=== PATIENT | male | born 1960 | race Caucasian/White ===

== ENCOUNTER 2017-07-18 23:33 | Observation (INO) ==
[2017-07-19 00:08] LABS: Basophils # 0.1 K/mm3 (0-0.2); Basophils % 0.8 % (0.1-2.0); Eosinophils # 0.3 K/mm3 (0.0-0.4); Hematocrit 49.1 % (42.0-52.0); Hemoglobin 16.7 g/dL (14.1-18.0); Lymphocytes # 3.7 K/mm3 (0.7-4.5); Lymphocytes % 39.4 K/mm3 (10-50); Mean Corpuscular HGB Conc 33.9 g/dL (31.8-35.4); Mean Corpuscular Hemoglobin 31.2 pg (27.0-31.2); Mean Platelet Volume 7.6 fl (7.4-10.4); Monocytes # 0.6 K/mm3 (0.1-1.0); Monocytes % 6.8 % (1.7-9.3); Neutrophils # 4.7 K/mm3 (1.8-7.8); Neutrophils % 49.9 % (37.0-80.0); Platelet Count 238 K/mm3 (142-424); Red Blood Count 5.34 M/mm3 (4.60-6.20); Red Cell Distribution Width 12.7 % (11.5-17.5); White Blood Count 9.4 K/mm3 (4.8-10.8)
--- NOTE | 2017-07-19 00:23 | Emergency Department Note ---
ED Disposition Clinical Impression: Unstable angina Chest pain Qualifiers: Chest pain type: precordial pain Qualified Code(s): R07.2 - Precordial pain Disposition: Admitted as Observation Condition on Discharge: Good - Critical Care Critical Care Time: No Attestation: On 07/18/17, the high probability of a clinically significant, sudden or life threatening deterioration of the following system(s) required my full and direct attention, intervention and personal management. The time I documented below is in addition to time spent performing reported procedures but includes the following listed in this critical care notation. Medical Decision Making - Medical Records Medical records reviewed: Yes: I reviewed the patient's medical records. - Ferdinand Inquiry Pt receiving controlled substance: No Vital Signs: 07/18/17 23:34 Temperature 97.9 F Temperature Source Oral Pulse Rate [Right Radial] 73 Respiratory Rate 16 Blood Pressure [Right Arm] 195/98 Blood Pressure Mean [Right Arm] 130 Blood Pressure Source [Right Arm] Automatic Cuff Blood Pressure Position [Right Arm] Sitting 02 Sat by Pulse Oximetry 91 L Oxygen Delivery Method Room Air - Lab Data Lab results reviewed: Yes: I reviewed the patient's lab results. Lab Results 07/18/17 23:55: WBC 9.4, RBC 5.34, Hgb 16.7, Hct 49.1, MCV 92.0, MCH 31.2, MCHC 33.9, RDW 12.7, Plt Count 238, MPV 7.6, Neut % (Auto) 49.9, Lymph % (Auto) 39.4 , Carlton % (Auto) 6.8, Eos % (Auto) 3.0, Baso % (Auto) 0.8, Neut # (Auto) 4.7, Lymph # (Auto) 3.7, Carl[place] # (Auto) 0.6, Eos # (Auto) 0.3, Baso # (Auto) 0.1 07/18/17 23:55: Sodium 144, Potassium 3.5, Chloride 107, Carbon Dioxide 26, Anion Gap 14.5, BUN 19 H, Creatinine 0.87, Estimated Creat Clear 157, Estimated GFR 90, Est GFR ( Amer) 109, Glucose 136 H, Calcium 8.6, Total Bilirubin 0.4, AST 26, ALT 59, Alkaline Phosphatase 125 H, Total Creatine Kinase 83, CK- MB (CK-2) 0.8, CK-MB (CK-2) Rel Index 1.0, Troponin I < 0.02, Total Protein 7.3 , Albumin 3.7, Globulin 3.6 H, Albumin/Globulin Ratio 1.0 L Result diagrams: 07/18/17 23:55 07/18/17 23:55 Orders (Tests/Meds): ED MEDICATIONS Generic Name Dose Route Start Last Admin Trade Name Freq PRN Reason Stop Dose Admin Nitroglycerin 0.4 mg 07/19/17 00:04 07/19/17 00:06 Nitrostat 0.4mg Sl Tablet SL 08/18/17 00:03 0.4 mg Q5MINP PRN Administration Chest Pain Discontinued Medications Generic Name Dose Route Start Last Admin Trade Name Freq PRN Reason Stop Dose Admin Aspirin 243 mg 07/18/17 23:43 07/18/17 23:46 Aspirin 81mg Chewable Tablet PO 07/18/17 23:44 243 mg ONCE ONE Administration Nitroglycerin 1 gm 07/19/17 00:21 07/19/17 00:27 Nitroglycerin 1 Inch Oint Udp TD 07/19/17 00:22 1 gm ONCE ONE Administration Ticagrelor 180 mg 07/19/17 01:25 07/19/17 01:30 Brilinta 90mg Tablet PO 07/19/17 01:26 180 mg ONCE ONE Administration ORDERS Category Date Time Status XR chest portable Stat Exams 07/18/17 23:42 Taken ECG Request by /Lucía Stat Y 07/18/17 23:41 Ordered - Radiology Data #1 Image(s): Chest Image Reviewed: Yes I reviewed the patient's radiology image Preliminary Findings: Abnormal (changes lt base ) - ECG Data Tracing #1 I reviewed this ECG and interpreted as documented below: Normal Sinus Rhythm: Yes Ischemic changes: non-specific ST-T wave changes - Physician Consults Physician Consulted: tanisha Reason -: Pt condition Chest Pain HPI - General Chief Complaint: Chest Pain Stated Complaint: chest pain Time Seen by Provider: 07/18/17 23:50 Mode of Arrival: Ambulatory Limitations: No Limitations Description of Symptoms (Recalled from ER Triage Doc. by RN): Pt. reports chest pain on and off for two weeks. Tonight he is expreincing jaw and right arm pain , with centalized chest pressure. - History of Present Illness HPI narrative: progressive chest pain with rad to jaw and upper ext over the last 2 weeks with sob complaint: chest pain indicative of cardiac Onset (ago): day(s) Duration: intermittent, now resolved Activity at onset: during exertion, light activity Pain location: substernal Severity: moderate Quality: tightness Pain radiation: RUE, LUE, jaw/teeth Relieving factors: nothing Risk Factors for CAD: Hypertension, Hypercholesterolemia, Family Hx of CAD Treatments prior to or on arrival for Cardiac Chest Pain: aspirin - CHRISTINA Score Non-Stemi Age of patient: Less than 65 yrs Number of risk factors for CAD: Presence of 3 or more Prior coronary artery stenosis(seen in coronary angiography): Less than 50% ST-Segment deviation on ECG (more than 1 min): Absent Prior aspirin intake: ASA intake in the last 7 days Severe anginal chest pain: Two or more episodes in last 24 hours Elevated cardiac markers(CK-MB or troponin): Absent Non-Stemi Risk Score: 3 - Related Data Allergies Allergy/AdvReac Type Severity Reaction Status Date / Time No Known Allergies Allergy Unverified 03/18/17 14:30 [facility] History I have reviewed the patient's past medical history: Yes - Social History Smoking Status: Former smoker Alcohol Intake: never - Psychiatric History Expresses thoughts of harming self/others: None Suicide Plan Description: No Plan ROS Obtained: Yes All systems reviewed & no additional complaints - Constitutional Constitutional: Denies fever(s) - Eyes Eyes: Denies change in vision - ENT Ears, Nose, Mouth, and Throat: Denies sore throat - Cardiovascular Cardiovascular: Reports chest pain, Reports chest pain with activity, Reports dyspnea - Respiratory Respiratory: No cough - Genitourinary Male Genitourinary: Denies hematuria - Musculoskeletal Musculoskeletal: Denies joint pain - Integumentary/Breasts Skin/Breast: Denies rash - Neurologic Neurologic: Denies seizure-like activity Physical Exam - General General appearance: alert, in no apparent distress - Head Head exam: normocephalic - Eye Eye exam: Present: PERRL, EOMI. Absent: scleral icterus - ENT ENT exam: Present: mucous membranes moist - Neck Neck exam: Present: trachea midline - Respiratory Respiratory exam: Present: normal lung sounds bilaterally. Absent: respiratory distress - Cardiovascular Cardiovascular exam: Present: regular rate, systolic murmur, +S4 - Abdominal Exam Abdominal exam: Present: soft - Extremities Exam Extremities exam: Absent: calf tenderness - Neurological Exam Neurological exam: Present: CN II-XII intact - Psychiatric Psychiatric exam: Present: normal affect - Skin Skin exam: Present: intact
[2017-07-19 01:06] LABS: Alanine Aminotransferase 59 U/L (12-78); Albumin Level 3.7 gm/dL (3.4-5.0); Alkaline Phosphatase 125 U/L (46-116); Anion Gap 14.5 mEq/L (5-15); Aspartate Amino Transferase 26 U/L (15-37); Bilirubin,Total 0.4 mg/dL (0.2-1.0); Blood Urea Nitrogen 19 mg/dL (7-18); Calcium 8.6 mg/dL (8.5-10.1); Carbon Dioxide 26 mmol/L (21.0-32.0); Chloride 107 mmol/L (98-107); Creatine Kinase 83 U/L (39-308); Globulin 3.6 gm/dl (1.3-3.2); Glucose 136 mg/dL (74-106); Potassium 3.5 mmoL/L (3.5-5.1); Sodium 144 mmol/L (136-145); Total Protein,Serum 7.3 gm/dL (6.4-8.2)
[2017-07-19 06:16] LABS: Basophils # 0.1 K/mm3 (0-0.2); Eosinophils # 0.3 K/mm3 (0.0-0.4); Eosinophils % 3.4 % (0.1-12.0); Hematocrit 51.2 % (42.0-52.0); Hemoglobin 17.6 g/dL (14.1-18.0); Lymphocytes # 4.4 K/mm3 (0.7-4.5); Lymphocytes % 43.3 K/mm3 (10-50); Mean Corpuscular HGB Conc 34.4 g/dL (31.8-35.4); Mean Corpuscular Hemoglobin 31.6 pg (27.0-31.2); Mean Corpuscular Volume 91.7 fl (80-94); Mean Platelet Volume 7.6 fl (7.4-10.4); Monocytes # 0.6 K/mm3 (0.1-1.0); Monocytes % 5.7 % (1.7-9.3); Neutrophils # 4.7 K/mm3 (1.8-7.8); Neutrophils % 46.7 % (37.0-80.0); Platelet Count 262 K/mm3 (142-424); Red Blood Count 5.59 M/mm3 (4.60-6.20); Red Cell Distribution Width 12.7 % (11.5-17.5); White Blood Count 10.2 K/mm3 (4.8-10.8)
[2017-07-19 06:54] LABS: Chol/HDL Ratio 4.1 (1-3.5)
--- NOTE | 2017-07-19 08:38 | History & Physical Report ---
*Admission Date: 07/18/17 *Chief complaint: Unstable angina *History of present illness: 57-year-old white male with diabetes, hypercholesterolemia and hypertension and obesity with significant family history of coronary disease who came to the emergency department with a chief complaint of exertional dyspnea, exertional angina that has accelerated over the past 48 hours. Initial enzymes were negative but given his significant risk factors he was admitted to hospital for further evaluation and cardiology consultation. [facility] History Medical History: Reports:: Heart Murmur, Hyperlipidemia, Hypertension Denies:: Cancer, Diabetes Mellitus Type 1, Diabetes Mellitus Type 2, MRSA Other Medical History: Reports: Arthritis, Sinus Problems Other Surgeries: Yes: Other (lithotripsy /c 2 basket extractions) Amputation: No Fractures: Yes (Bilat ribs, 3 vertebral fractures, sternum fracture) - *Social History Educational Level: Attended High School Smoking Status: Former smoker Smoking End Date: 2013 Alcohol Intake: former Occupational Status: employed Housing: house Household Members: spouse, children - Psychiatric History Expresses thoughts of harming self/others: None Suicide Plan Description: No Plan *Family Hx:: Cancer, Coronary Artery Disease, Diabetes, Heart Attack, Hyperlipidemia, Hypertension, Kidney Disease, Stroke, Thyroid Disorder Review of Systems - Review of Systems Review of systems:: unable to obtain, other, pertinent systems reviewed and negative unless documented below - *Neurologic Denies seizure-like activity Meds Home Medications Medication Instructions Recorded Confirmed Type Albuterol Sulfate [Proair Hfa 2 puffs IH Q4HP PRN 07/19/17 07/19/17 History 90mcg/puff Inh] Aspirin [Low Dose Aspirin EC] 81 mg PO DAILY 07/19/17 07/19/17 History Atorvastatin Calcium [Atorvastatin 80 mg PO HS 07/19/17 07/19/17 History 80mg Tab] Cariprazine HCl [Vraylar] 6 mg PO DAILY 07/19/17 07/19/17 History Esomeprazole Magnesium [Nexium] 40 mg PO HS 07/19/17 07/19/17 History Ibuprofen [Ibu] 800 mg PO Q8H 07/19/17 07/19/17 History Tamsulosin HCl [Flomax 0.4mg 0.4 mg PO DAILY 07/19/17 07/19/17 History capsule] Tiotropium Br/Olodaterol HCl 1 puff INHALATION Q12H 07/19/17 07/19/17 History [Stiolto Respimat Inhal [place]] Allergies Allergy/AdvReac Type Severity Reaction Status Date / Time No Known Allergies Allergy Verified 07/19/17 02:37 Exam Vital signs and Labs for Last 24 Hours: Temp Pulse Resp BP Pulse Ox 98.5 F 63 18 163/99 96 07/19/17 04:00 07/19/17 04:00 07/19/17 04:00 07/19/17 06:54 07/19/17 04:00 Laboratory Results - last 24 hr 07/19/17 02:30: Troponin I < 0.02 07/19/17 05:35: WBC 10.2, RBC 5.59, Hgb 17.6, Hct 51.2, MCV 91.7, MCH 31.6 H, MCHC 34.4, RDW 12.7, Plt Count 262, MPV 7.6, Neut % (Auto) 46.7, Lymph % (Auto) 43.3, [place] % (Auto) 5.7, Eos % (Auto) 3.4, Baso % (Auto) 1.0, Neut # (Auto) 4.7 , Lymph # (Auto) 4.4, Dent # (Auto) 0.6, Eos # (Auto) 0.3, Baso # (Auto) 0.1 07/19/17 05:35: Sodium 144, Potassium 4.0, Chloride 107, Carbon Dioxide 27, Anion Gap 14.0, BUN 17, Creatinine 0.79, Estimated Creat Clear 177, Estimated GFR 101, Est GFR ( Amer) 122, Glucose 95 D, Magnesium 1.8, Troponin I 0.02, Triglycerides 118, Cholesterol 154, LDL Cholesterol 92, VLDL Cholesterol 24, HDL Cholesterol 38, Cholesterol/HDL Ratio 4.1 H Narrative: Patient is alert, pain-free currently, lungs are clear, heart rate regular, pulse rate in the low 60s and a sinus bradycardia rhythm abdomen soft nontender , he has no edema or pulse deficits in his feet. Neurologic exam intact. H&P: Result - Labs Labs: Short CBC 07/19/17 Range/Units 05:35 WBC 10.2 (4.8-10.8) K/mm3 Hgb 17.6 (14.1-18.0) g/dL Hct 51.2 (42.0-52.0) % Plt Count 262 (142-424) K/mm3 BMP 07/19/17 05:35 Sodium 144 Potassium 4.0 Chloride 107 Carbon Dioxide 27 BUN 17 Creatinine 0.79 Glucose 95 D Cardiac Enzymes 07/19/17 07/19/17 Range/Units 02:30 05:35 Troponin I < 0.02 0.02 (0.00-0.06) ng/ml Assessment and Plan (1) Chest pain Current visit: Yes Status: Acute Qualifiers: Chest pain type: precordial pain Qualified Code(s): R07.2 - Precordial pain Category: Medical Code(s): R07.9 - Chest pain, unspecified (2) Unstable angina Current visit: Yes Status: Acute Category: Medical Code(s): I20.0 - Unstable angina Enzymes negative. Cardiology evaluation. Patient warrants left heart catheterization given his significant risk factors and clinical presentation.
--- NOTE | 2017-07-19 15:16 | Pharmacy Consult Notes ---
[facility] Pharmacy VTE Monitoring - Patient Demographics Admission date: 07/19/17 Report Date: 07/19/17 Time: 15:16 Allergies/Adverse Reactions: Patient Allergies No Known Allergies Allergy (Verified 07/19/17 02:37) Height: 1.83 m Weight: 122.583 kg Patient Problems: Current Active Problems Chest pain (Acute) Unstable angina (Acute) - VTE Risk Labs: VTE Related Lab Results Hgb 17.6 g/dL (14.1-18.0) 07/19/17 05:35 Hct 51.2 % (42.0-52.0) 07/19/17 05:35 Plt Count 262 K/mm3 (142-424) 07/19/17 05:35 BUN 17 mg/dL (7-18) 07/19/17 05:35 Creatinine 0.79 mg/dL (0.70-1.30) 07/19/17 05:35 Estimated Creat Clear 177 mL/min (0-300) 07/19/17 05:35 Was VTE Risk Assessment Performed: Yes VTE Score: 3 VTE Risk Level: Low Risk - Prophylaxis VTE Prophylaxis Ordered?: Yes Types of VTE Prophylaxis: TEDS Knee High Location of Applied Device: Bilateral Lower Extremeties
[2017-07-20 06:32] LABS: Basophils % 0.3 % (0.1-2.0); Eosinophils # 0.1 K/mm3 (0.0-0.4); Eosinophils % 0.6 % (0.1-12.0); Hematocrit 45.3 % (42.0-52.0); Hemoglobin 15.7 g/dL (14.1-18.0); Lymphocytes # 2.6 K/mm3 (0.7-4.5); Lymphocytes % 20.2 K/mm3 (10-50); Mean Corpuscular HGB Conc 34.7 g/dL (31.8-35.4); Mean Corpuscular Hemoglobin 31.9 pg (27.0-31.2); Mean Corpuscular Volume 91.9 fl (80-94); Mean Platelet Volume 7.9 fl (7.4-10.4); Monocytes # 0.8 K/mm3 (0.1-1.0); Monocytes % 6.6 % (1.7-9.3); Neutrophils # 9.3 K/mm3 (1.8-7.8); Neutrophils % 72.3 % (37.0-80.0); Platelet Count 232 K/mm3 (142-424); Red Blood Count 4.93 M/mm3 (4.60-6.20); Red Cell Distribution Width 13.1 % (11.5-17.5); White Blood Count 12.8 K/mm3 (4.8-10.8)
--- NOTE | 2017-07-20 09:00 | Progress Note ---
Internal Medicine - PN: Subj *Date: 07/20/17 *Time: 08:59 Interval history: Patient has done well overnight with no further chest pain, but has continued to be on nitro drip for his blood pressure which is been in the 150/170 systolic range. Exam Vital signs and Labs for Last 24 Hours: Temp Pulse Resp BP Pulse Ox 98.3 F 67 14 164/83 92 L 07/20/17 04:00 07/20/17 07:00 07/20/17 07:00 07/20/17 07:00 07/20/17 07:00 Laboratory Results - last 24 hr 07/19/17 12:14: Activated Clotting Time 400 H* 07/19/17 12:43: Activated Clotting Time 305 H* D 07/20/17 06:00: Sodium 139, Potassium 4.0, Chloride 105, Carbon Dioxide 23, Anion Gap 15.0, BUN 18, Creatinine 0.73, Estimated Creat Clear 192, Estimated GFR 110, Est GFR ( Amer) 134, Glucose 104 07/20/17 06:00: WBC 12.8 H D, RBC 4.93, Hgb 15.7, Hct 45.3, MCV 91.9, MCH 31.9 H , MCHC 34.7, RDW 13.1, Plt Count 232, MPV 7.9, Neut % (Auto) 72.3, Lymph % (Auto ) 20.2, Preston % (Auto) 6.6, Eos % (Auto) 0.6, Baso % (Auto) 0.3, Neut # (Auto) 9.3 H, Lymph # (Auto) 2.6, Preston # (Auto) 0.8, Eos # (Auto) 0.1, Baso # (Auto) 0.0 I & O for Last 24 hours: Intake & Output 07/17/17 07/18/17 07/19/17 07/20/17 11:59 11:59 11:59 11:59 Intake Total 966 / 966 Output Total 650 / 650 Balance 316 / 316 Weight 272 lb Narrative: Patient is pleasant, alert, oriented 3, heart rate regular, lungs clear. Abdomen soft. Assessment and Plan (1) Chest pain Current visit: Yes Status: Acute Qualifiers: Chest pain type: precordial pain Qualified Code(s): R07.2 - Precordial pain Category: Medical Code(s): R07.9 - Chest pain, unspecified (2) Unstable angina Current visit: Yes Status: Acute Category: Medical Code(s): I20.0 - Unstable angina (3) Accelerated hypertension Current visit: Yes Status: Acute Category: Medical Code(s): I10 - Essential (primary) hypertension - Assessment and plan all Dx Assessment and Plan for all problems:: Cardiology note/procedure note reviewed. Appreciated. Continue postcardiac/stent placement medications. Bump up beta-paty and add JULIANE inhibitor today for hypertensive issues. Wean off nitroglycerin drip today.
--- NOTE | 2017-07-21 08:06 | Discharge Summary ---
General - General Admission date: 07/19/17 Discharge date: 07/21/17 HPI HPI: 57-year-old white male with diabetes, hypercholesterolemia and hypertension and obesity with significant family history of coronary disease who came to the emergency department with a chief complaint of exertional dyspnea, exertional angina that has accelerated over the past 48 hours. Initial enzymes were negative but given his significant risk factors he was admitted to hospital for further evaluation and cardiology consultation. Hospital Course Hospital Course: Patient was admitted, rule out for GA but given his significant risk factors and exertional angina symptoms he was taken for left heart cath on 07/19/17, and significant disease was found in the LAD and the RCA. This was stented with good results but patient had a fairly significant hypertensive response and was medicated with nitro drip and placed in the ICU. Blood pressure responded to this. The patient had no further chest pain and felt much better. Over the next 48 hours the patient's nitro drip was weaned off and he was successfully treated with tapering doses of beta blockade and JULIANE inhibitors. Through the night last night he felt much better, blood pressure was relatively well controlled without nitro drip. Headache that had been with the drip has improved. This morning he feels well, he will be discharged home with standard post stent placement medications, aggressive blood pressure control, aggressive statin therapy and close follow-up. Objective Vital signs: Temp Pulse Resp BP Pulse Ox 97.9 F 64 13 144/84 94 L 07/21/17 04:00 07/21/17 06:13 07/21/17 06:13 07/21/17 06:13 07/21/17 06:13 Narrative: Patient is pleasant, alert, oriented 3, lungs are clear, heart rate regular. Abdomen soft, no edema or clubbing. Cranial nerves are intact. DS: Diagnosis - Discharge Diagnosis (1) Chest pain Status: Acute (2) Unstable angina Status: Acute (3) Accelerated hypertension Status: Acute Discharge Plan - Patient Discharge Instructions ACTIVITY: No heavy lifting DIET: continue same diet - Follow up Plan Follow up with: Kareem Duenas MD [Family Provider] - 07/25/17 Esteban Grimes MD [Staff Physician] - 07/28/17 Disposition: Home, Self-Alf Medications: Home Medications Medication Instructions Recorded Confirmed Type Albuterol Sulfate [Proair Hfa 2 puffs IH Q4HP PRN 07/19/17 07/19/17 History 90mcg/puff Inh] Aspirin [Low Dose Aspirin EC] 81 mg PO DAILY 07/19/17 07/19/17 History Atorvastatin Calcium [Atorvastatin 80 mg PO HS 07/19/17 07/19/17 History 80mg Tab] Esomeprazole Magnesium [Nexium] 40 mg PO HS 07/19/17 07/19/17 History Ibuprofen [Ibu] 800 mg PO Q8H 07/19/17 07/19/17 History Tamsulosin HCl [Flomax 0.4mg 0.4 mg PO DAILY 07/19/17 07/19/17 History capsule] Tiotropium Br/Olodaterol HCl 1 puff INHALATION Q12H 07/19/17 07/19/17 History [Stiolto Respimat Inhal [place]] Cariprazine HCl [Vraylar] 1.5 mg PO DAILY 07/20/17 07/20/17 History Prescriptions/Medication Reconciliation: New Lisinopril [Lisinopril 20mg Tab] 20 mg PO BID #60 tab Ticagrelor [Brilinta 90mg Tablet] 90 mg PO BID #60 tab Carvedilol [Carvedilol 25mg Tab] 25 mg PO BID #60 tab Continue Tiotropium Br/Olodaterol HCl [Stiolto Respimat Inhal [place]] 1 puff INHALATION Q12H Atorvastatin Calcium [Atorvastatin 80mg Tab] 80 mg PO HS Albuterol Sulfate [Proair Hfa 90mcg/puff Inh] 2 puffs IH Q4HP PRN PRN Reason: Shortness Of Breath Aspirin [Low Dose Aspirin EC] 81 mg PO DAILY Cariprazine HCl [Vraylar] 1.5 mg PO DAILY Esomeprazole Magnesium [Nexium] 40 mg PO HS Tamsulosin HCl [Flomax 0.4mg capsule] 0.4 mg PO DAILY Discontinued Ibuprofen [Ibu] 800 mg PO Q8H
--- NOTE | 2017-07-21 09:44 | Consult Report ---
History of Present Illness Consult date: 07/21/17 Requesting physician: Kareem Duenas Consult reason: chest pain Chief complaint: chest pain Additional Medical History:: 1. COPD A. History of tobacco use 2-2.5 packs per day 35 years. Discontinued approximately 2013. 2. Hypertension 3. Hyperlipidemia 4. Coronary artery disease A. Left heart catheterization, 07/20/2017 ANGIOGRAPHIC RESULTS: 1. The left main artery normal 2. The left anterior descending artery has proximal hazy 70% stenosis followed by a long concentric 80% stenosis followed by an additional 50% stenosis. The LAD is a large vessel that wraps the apex. The first diagonal artery is a large vessel and has an ostial 90% stenosis 3. The circumflex artery is a nondominant vessel giving rise to a large obtuse marginal artery which has a proximal eccentric 40-50% stenosis 4. The right coronary artery is a very large caliber dominant vessel which has a proximal complex greater than 90% stenosis followed by long 50-60% stenosis 5. The PRAKASH ventriculogram reveals normal 65% 6. The left ventricular end-diastolic pressure 20 mmHg IMPRESSION: 1. Critical 2 vessel coronary artery disease as described above 2. Successful stenting of the proximal to mid LAD critical disease reduced to 0% with 2 drug-eluting stents with one additional bifurcating stent into a large proximal diagonal artery 3. Successful stenting of the proximal to mid dominant right coronary artery critical disease reduced to 0% with 1 drug-eluting stent 4. Persistent mild to moderate disease in the circumflex artery 5. Normal ejection fraction 6. Mildly elevated LVEDP PLAN: 1. Brilinta and aspirin 2. LDL less than 55 3. Avoidance of tobacco products 4. Aggressive risk factor modification 5. Cardiac rehabilitation History of present illness: 57-year-old white male admitted over the weekend for recurrent episodes of exertion related discomfort in the jaw and right arm. Symptoms would resolve after a few minutes of rest but would recur with resumption of activity. Says been ongoing over the last 2-3 weeks with progression in symptoms in intensity. Patient was admitted for unstable angina/acute coronary syndrome. His troponins remained normal but patient was taken to the cardiac Pharmacy Scheduler with significant three-vessel disease noted. He did receive subsequent stenting in the LAD, diagonal and RCA arteries. This a.m. the patient is feeling well with no further episodes of chest pain. He is preparing to be discharged home. [facility] History Medical History: Reports:: Heart Murmur, Hyperlipidemia, Hypertension Denies:: Cancer, Diabetes Mellitus Type 1, Diabetes Mellitus Type 2, MRSA Other Medical History: Reports: Arthritis, Sinus Problems Other Surgeries: Yes: Other (lithotripsy /c 2 basket extractions) Amputation: No Fractures: Yes (Bilat ribs, 3 vertebral fractures, sternum fracture) - *Social History Educational Level: Attended High School Smoking Status: Former smoker Smoking End Date: 2013 Alcohol Intake: former Occupational Status: employed Housing: house Household Members: spouse, children - Psychiatric History Expresses thoughts of harming self/others: None Suicide Plan Description: No Plan *Family Hx:: Cancer, Coronary Artery Disease, Diabetes, Heart Attack, Hyperlipidemia, Hypertension, Kidney Disease, Stroke, Thyroid Disorder Meds Home Medications Medication Instructions Recorded Confirmed Type Albuterol Sulfate [Proair Hfa 2 puffs IH Q4HP PRN 07/19/17 07/19/17 History 90mcg/puff Inh] Aspirin [Low Dose Aspirin EC] 81 mg PO DAILY 07/19/17 07/19/17 History Atorvastatin Calcium [Atorvastatin 80 mg PO HS 07/19/17 07/19/17 History 80mg Tab] Esomeprazole Magnesium [Nexium] 40 mg PO HS 07/19/17 07/19/17 History Tamsulosin HCl [Flomax 0.4mg 0.4 mg PO DAILY 07/19/17 07/19/17 History capsule] Tiotropium Br/Olodaterol HCl 1 puff INHALATION Q12H 07/19/17 07/19/17 History [Stiolto Respimat Inhal [place]] Cariprazine HCl [Vraylar] 1.5 mg PO DAILY 07/20/17 07/20/17 History Allergies Allergy/AdvReac Type Severity Reaction Status Date / Time No Known Allergies Allergy Verified 07/19/17 02:37 Review of Systems - *Cardiovascular Reports chest pain - *Respiratory Reports shortness of breath - *Gastrointestinal Denies change in stools - *Neurologic Denies seizure-like activity Exam Vital signs and Labs for Last 24 Hours: Temp Pulse Resp BP Pulse Ox 97.9 F 76 18 155/76 92 L 07/21/17 04:00 07/21/17 08:31 07/21/17 08:31 07/21/17 08:31 07/21/17 08:31 I & O for Last 24 hours: Intake & Output 07/18/17 07/19/17 07/20/17 07/21/17 11:59 11:59 11:59 11:59 Intake Total 966 / 966 400 / 400 Output Total 650 / 650 775 / 775 Balance 316 / 316 -375 / -375 Weight 270 lb 4 oz 272 lb - *Routine Neck Exam Absent: carotid bruit - *Routine Respiratory Exam Present: CTA bilaterally - *Routine Cardiovascular Exam Present: RRR - *Routine Extremities Exam Absent: edema Assessment and Plan (1) Chest pain Current visit: Yes Status: Acute Qualifiers: Chest pain type: precordial pain Qualified Code(s): R07.2 - Precordial pain Category: Medical Code(s): R07.9 - Chest pain, unspecified (2) Unstable angina Current visit: Yes Status: Acute Category: Medical Code(s): I20.0 - Unstable angina (3) Accelerated hypertension Current visit: Yes Status: Acute Category: Medical Code(s): I10 - Essential (primary) hypertension (4) Hyperlipidemia Current visit: Yes Status: Acute Category: Medical Code(s): E78.5 - Hyperlipidemia, unspecified - Assessment and plan all Dx Assessment and Plan for all problems:: Agree with discharge home. Continue dual antiplatelet therapy (aspirin and Brilinta) along with antihypertensive and antihyperlipidemic medications. He will follow-up with us in 1 week.
== END 2017-07-21 10:39 | disposition home or self-care (01) ==
LOC: ER 23:33 → 2ND 23:33 → ICU 07-19 13:57
PROVIDERS: ADMIT Emergency Medicine; ATTEND Internal Medicine Adolescent Medicine

== ENCOUNTER 2017-07-31 13:52 | Outpatient (RCR) | payer MEDICAID, SELFPAY | END 2017-07-31 13:53 | disposition home or self-care (01) | LOC: PT 13:52 | PROVIDERS: Visit Provider Internal Medicine | DX: Z95.5 Presence of coronary angioplasty implant and graft (principal) | CPT/HCPCS: 93798 ==

== ENCOUNTER → 2017-08-13 11:11 | Outpatient (CLI) | payer MEDICAID, SELFPAY ==
[2017-08-13 11:29] LABS: Basophils # 0.1 K/mm3 (0-0.2); Basophils % 1.1 % (0.1-2.0); Eosinophils # 0.2 K/mm3 (0.0-0.4); Hematocrit 46.7 % (42.0-52.0); Lymphocytes # 2.2 K/mm3 (0.7-4.5); Lymphocytes % 30.7 K/mm3 (10-50); Mean Corpuscular HGB Conc 34.2 g/dL (31.8-35.4); Mean Corpuscular Hemoglobin 30.9 pg (27.0-31.2); Mean Corpuscular Volume 90.3 fl (80-94); Monocytes # 0.5 K/mm3 (0.1-1.0); Monocytes % 7.3 % (1.7-9.3); Neutrophils # 4.2 K/mm3 (1.8-7.8); Neutrophils % 57.9 % (37.0-80.0); Platelet Count 305 K/mm3 (142-424); Red Blood Count 5.17 M/mm3 (4.60-6.20); Red Cell Distribution Width 12.4 % (11.5-17.5); White Blood Count 7.3 K/mm3 (4.8-10.8)
[2017-08-13 13:13] LABS: Alanine Aminotransferase 84 U/L (12-78); Albumin Level 3.8 gm/dL (3.4-5.0); Albumin/Globulin Ratio 1.1 (1.1-1.8); Alkaline Phosphatase 162 U/L (46-116); Anion Gap 14.7 mEq/L (5-15); Aspartate Amino Transferase 31 U/L (15-37); Bilirubin,Total 1.1 mg/dL (0.2-1.0); Blood Urea Nitrogen 19 mg/dL (7-18); Calcium 9.7 mg/dL (8.5-10.1); Carbon Dioxide 27 mmol/L (21.0-32.0); Chloride 106 mmol/L (98-107); Cholesterol 128 mg/dL (140-200); Creatinine,Serum 0.98 mg/dL (0.70-1.30); Estimated Glomerular Filt Rate 79 ml/min (>60); GFR (African American) 95 ML/MIN (>60); Globulin 3.6 gm/dl (1.3-3.2); Glucose 95 mg/dL (74-106); HDL Cholesterol 32 mg/dL (27-67); LDL Cholesterol 81 mg/dL (0-130); Potassium 4.7 mmoL/L (3.5-5.1); Sodium 143 mmol/L (136-145); Total Protein,Serum 7.4 gm/dL (6.4-8.2); Triglycerides 74 mg/dL (30-200); VLDL Cholesterol 15 mg/dL (0-40)
== END ==
PROVIDERS: Visit Provider Internal Medicine Adolescent Medicine
DX: E78.5 Hyperlipidemia, unspecified (principal); I25.10 Atherosclerotic heart disease of native coronary artery without angina pectoris
CPT/HCPCS: 36415; 80053; 80061; 85025

== ENCOUNTER 2017-09-28 12:07 | Observation (INO) ==
--- NOTE | 2017-09-28 12:16 | Emergency Department Note ---
ED Disposition Clinical Impression: Acute renal failure Qualifiers: Acute renal failure type: unspecified Qualified Code(s): N17.9 - Acute kidney failure, unspecified Hypotension Qualifiers: Hypotension type: unspecified hypotension type Qualified Code(s): I95.9 - Hypotension, unspecified Disposition: Still a Patient Condition on Discharge: Fair - Critical Care Critical Care Time: Yes Attestation: On 09/28/17, the high probability of a clinically significant, sudden or life threatening deterioration of the following system(s) required my full and direct attention, intervention and personal management. The time I documented below is in addition to time spent performing reported procedures but includes the following listed in this critical care notation. Total Critical Care Time: 20 Vital system(s) involved:: Renal Failure My critical care processes included: Assessment & monitoring of V/S, Initial and Re-exams, Data Review/Interpretation, Coordinating Care, Medication Orders and management, Documentation Medical Decision Making - Ferdinand Inquiry Pt receiving controlled substance: No Vital Signs: 09/28/17 12:10 09/28/17 13:38 Temperature 97.9 F 98.3 F Temperature Source Oral Oral Pulse Rate [Right Brachial] 61 62 Respiratory Rate 20 20 Blood Pressure [Right Arm] 83/43 109/73 Blood Pressure Mean [Right Arm] 56 85 Blood Pressure Source [Right Arm] Automatic Cuff Automatic Cuff Blood Pressure Position [Right Arm] Sitting Supine 02 Sat by Pulse Oximetry 92 L 95 Oxygen Delivery Method Room Air Room Air - Lab Data Lab Results 09/28/17 12:18: WBC 13.0 H, RBC 4.81, Hgb 16.1, Hct 43.8, MCV 91.0, MCH 33.5 H, MCHC 36.8 H, RDW 13.8, Plt Count 280, MPV 8.0, Neut % (Auto) 65.2, Lymph % (Auto ) 23.7, Bracken % (Auto) 8.9, Eos % (Auto) 1.4, Baso % (Auto) 0.7, Neut # (Auto) 8.5 H, Lymph # (Auto) 3.1, Bracken # (Auto) 1.2 H, Eos # (Auto) 0.2, Baso # (Auto) 0.1 09/28/17 12:18: Sodium 140, Potassium 3.6, Chloride 104, Carbon Dioxide 22, Anion Gap 17.6 H, BUN 33 H, Creatinine 4.22 H, Estimated Creat Clear 32, Estimated GFR 15 L*, Est GFR ( Amer) 18 L*, Glucose 102, Calcium 9.1, Total Bilirubin 1.3 H, AST 22, ALT 54, Alkaline Phosphatase 159 H, Total Creatine Kinase 88, CK-MB (CK-2) 0.9, CK-MB (CK-2) Rel Index 1.0, Troponin I < 0.02, Total Protein 8.2, Albumin 4.4, Globulin 3.8 H, Albumin/Globulin Ratio 1.2 Result diagrams: 09/28/17 12:18 09/28/17 12:18 Orders (Tests/Meds): ED MEDICATIONS Generic Name Dose Route Start Last Admin Trade Name Freq PRN Reason Stop Dose Admin Sodium Chloride 1,000 mls @ 999 mls/hr 09/28/17 13:15 09/28/17 13:34 Sod Chlor 0.9% 1000ml Bag IV 09/28/17 14:15 999 mls/hr .Q1H1M ESME Administration Discontinued Medications Generic Name Dose Route Start Last Admin Trade Name Freq PRN Reason Stop Dose Admin Sodium Chloride 1,000 mls @ 999 mls/hr 09/28/17 12:30 09/28/17 13:34 Sod Chlor 0.9% 1000ml Bag IV 09/28/17 13:30 999 mls/hr .Q1H1M ESME Administration ORDERS Category Date Time Status Chest XR 2 view (NOT portable) [XR chest 2V] Stat Exams 09/28/17 12:23 Taken - ECG Data Tracing #1 EKG interpreted by Carlos Manuel Paz MD: Rhythm: sinus Rate: 62 [place]: normal Ectopy: none Conduction: normal ST Segment Changes: none T Wave Changes: none Q Waves: none No evidence of acute ischemia or injury - Physician Consults Physician Consulted: Dilia Duenas Time: 13:25 Reason -: Admission Comment/Response: Agrees to admit the patient to the hospital. We discussed the patient's clinical information, including history, exam, laboratory and radiology results and ED course. Per hospital procedure, I will write temporary bridge inpatient orders on the patient. Specific orders requested by the admitting physician: Stop lisinopril, continue hydration, recheck labs in the morning General Adult HPI - General Stated complaint: Weakness and Low BP Time Seen by Provider: 09/28/17 12:15 - History of Present Illness HPI narrative: States he is feeling generally weak and blood pressure was down in the 60s today. When he was out in the heat working he had trouble holding his head up. He says ever since he had stents placed in June he has had chest tightness whenever he is out of the heat. Also gets nauseated when out in the heat. Family states he is not drinking fluids like he should considering his heat exposure. He had chest tightness today when out in the heat along with feeling weak and had trouble holding his head up. Currently has no chest tightness. When he had his stents placed in June his blood pressure was very high. However, since then he has had problems with his blood pressure being too low, in the 80s systolic, and his medications have been adjusted downwards. Currently he is on bisoprolol and lisinopril. He has not taken any of his blood pressure medications this morning. - Related Data Home Medications Medication Instructions Recorded Confirmed Albuterol Sulfate [Proair Hfa 2 puffs IH Q4HP PRN 07/19/17 09/28/17 90mcg/puff Inh] Aspirin [Low Dose Aspirin EC] 81 mg PO DAILY 07/19/17 09/28/17 Atorvastatin Calcium [Atorvastatin 80 mg PO HS 07/19/17 09/28/17 80mg Tab] Esomeprazole Magnesium [Nexium] 40 mg PO HS 07/19/17 09/28/17 Tamsulosin HCl [Flomax 0.4mg 0.4 mg PO DAILY 07/19/17 09/28/17 capsule] Cariprazine HCl [Vraylar] 1.5 mg PO DAILY 07/20/17 09/28/17 lisinopril 20 mg tablet 10 mg PO BID tab 09/16/17 09/28/17 Bisoprolol Fumarate [Zebeta 5mg 5 mg PO DAILY 09/28/17 09/28/17 tablet] Clopidogrel Bisulfate [Plavix 75mg 75 mg PO DAILY 09/28/17 09/28/17 Tab] Allergies Allergy/AdvReac Type Severity Reaction Status Date / Time No Known Allergies Allergy Verified 07/29/17 12:29 [facility] History I have reviewed the patient's past medical history: Yes Medical History: Reports:: Heart Murmur, Hyperlipidemia, Hypertension Denies:: Cancer, Diabetes Mellitus Type 1, Diabetes Mellitus Type 2, MRSA Other Medical History: Reports: Arthritis, Sinus Problems Other Surgeries: Yes: Cardiac Catheterization (07/19/17 4 stents), Other Amputation: No Fractures: Yes (Bilat ribs, 3 vertebral fractures, sternum fracture) - Social History Smoking Status: Former smoker Alcohol Intake: former Alcohol Intake Frequency:: other Occupational Status: employed Housing: house Household Members: spouse, children Family Hx:: Cancer, Coronary Artery Disease, Diabetes, Heart Attack, Hyperlipidemia, Hypertension, Kidney Disease, Stroke, Thyroid Disorder ROS Obtained: Yes All systems reviewed & no additional complaints - Constitutional Constitutional: Reports fatigue, Denies fever(s), Reports weakness - Cardiovascular Cardiovascular: Reports as per HPI, Reports chest pain - Respiratory Respiratory: Yes dyspnea - Gastrointestinal Gastrointestingal: Reports: nausea Physical Exam - General General appearance: alert, in no apparent distress - Head Head exam: atraumatic, normocephalic, normal inspection - Eye Eye exam: Present: normal appearance, PERRL, EOMI - ENT ENT exam: Present: normal exam, normal oropharynx, mucous membranes moist, TM's normal bilaterally, normal external ear exam - Neck Neck exam: Present: normal inspection, full ROM, trachea midline. Absent: meningismus, lymphadenopathy - Chest Chest inspection: Present: normal inspection, symmetric chest wall rise. Absent : tenderness - Respiratory Respiratory exam: Present: normal lung sounds bilaterally. Absent: respiratory distress - Cardiovascular Cardiovascular exam: Present: regular rate, normal rhythm. Absent: JVD - Abdominal Exam Abdominal exam: Present: soft, normal bowel sounds. Absent: distention, tenderness, guarding - Extremities Exam Extremities exam: Present: normal inspection, full ROM, normal capillary refill. Absent: calf tenderness - Neurological Exam Neurological exam: Present: alert, oriented X3 - Psychiatric Psychiatric exam: Present: normal affect, normal mood - Skin Skin exam: Present: warm, dry, intact, normal color
[2017-09-28 12:41] LABS: Basophils # 0.1 K/mm3 (0-0.2); Basophils % 0.7 % (0.1-2.0); Eosinophils # 0.2 K/mm3 (0.0-0.4); Eosinophils % 1.4 % (0.1-12.0); Hematocrit 43.8 % (42.0-52.0); Hemoglobin 16.1 g/dL (14.1-18.0); Lymphocytes # 3.1 K/mm3 (0.7-4.5); Lymphocytes % 23.7 K/mm3 (10-50); Mean Corpuscular HGB Conc 36.8 g/dL (31.8-35.4); Mean Corpuscular Hemoglobin 33.5 pg (27.0-31.2); Monocytes # 1.2 K/mm3 (0.1-1.0); Monocytes % 8.9 % (1.7-9.3); Neutrophils # 8.5 K/mm3 (1.8-7.8); Neutrophils % 65.2 % (37.0-80.0); Platelet Count 280 K/mm3 (142-424); Red Blood Count 4.81 M/mm3 (4.60-6.20); Red Cell Distribution Width 13.8 % (11.5-17.5)
[2017-09-28 13:03] LABS: Alanine Aminotransferase 54 U/L (12-78); Albumin Level 4.4 gm/dL (3.4-5.0); Albumin/Globulin Ratio 1.2 (1.1-1.8); Alkaline Phosphatase 159 U/L (46-116); Anion Gap 17.6 mEq/L (5-15); Aspartate Amino Transferase 22 U/L (15-37); Bilirubin,Total 1.3 mg/dL (0.2-1.0); Blood Urea Nitrogen 33 mg/dL (7-18); Calcium 9.1 mg/dL (8.5-10.1); Carbon Dioxide 22 mmol/L (21.0-32.0); Chloride 104 mmol/L (98-107); Creatine Kinase 88 U/L (39-308); Globulin 3.8 gm/dl (1.3-3.2); Glucose 102 mg/dL (74-106); Potassium 3.6 mmoL/L (3.5-5.1); Sodium 140 mmol/L (136-145); Total Protein,Serum 8.2 gm/dL (6.4-8.2)
--- NOTE | 2017-09-28 14:27 | Pharmacy Consult Notes ---
[facility] Pharmacy VTE Monitoring - Patient Demographics Admission date: 09/28/17 Report Date: 09/28/17 Time: 14:27 Allergies/Adverse Reactions: Patient Allergies No Known Allergies Allergy (Verified 07/29/17 12:29) Height: 1.83 m Weight: 109.769 kg Patient Problems: Current Active Problems Acute renal failure (Acute) Hypotension (Acute) - VTE Risk Labs: VTE Related Lab Results Hgb 16.1 g/dL (14.1-18.0) 09/28/17 12:18 Hct 43.8 % (42.0-52.0) 09/28/17 12:18 Plt Count 280 K/mm3 (142-424) 09/28/17 12:18 BUN 33 mg/dL (7-18) H 09/28/17 12:18 Creatinine 4.22 mg/dL (0.70-1.30) H 09/28/17 12:18 Estimated Creat Clear 32 mL/min (0-300) 09/28/17 12:18 - Prophylaxis VTE Prophylaxis Ordered?: Yes Types of VTE Prophylaxis: TEDS Knee High Location of Applied Device: Bilateral Lower Extremeties
[2017-09-29 06:15] LABS: Anion Gap 10.7 mEq/L (5-15); Potassium 3.7 mmoL/L (3.5-5.1)
[2017-09-29 06:46] LABS: Calcium 7.7 mg/dL (8.5-10.1)
--- NOTE | 2017-09-29 07:52 | H&P/Discharge Summary ---
General - General Admission date:: 09/28/17 Discharge date: 09/29/17 *Admission Date: 09/28/17 *Chief complaint: Weakness and fatigue *History of present illness: 57-year-old white male with recent stent placement, hypertension and lipidemia who presented to the emergency department after working out in the heat and becoming very weak and dizzy with blood pressures in the 60s. Found to have acute kidney injury, dehydration, creatinine 4.6, admitted to hospital. [facility] History I have reviewed the patient's past medical history: Yes Medical History: Reports:: Heart Murmur, Hyperlipidemia, Hypertension Denies:: Cancer, Diabetes Mellitus Type 1, Diabetes Mellitus Type 2, MRSA Other Medical History: Reports: Arthritis, Sinus Problems Other Surgeries: Yes: Cardiac Catheterization (07/19/17 4 stents), Other Amputation: No Fractures: Yes (Bilat ribs, 3 vertebral fractures, sternum fracture) - *Social History Educational Level: Attended High School Smoking Status: Former smoker Tobacco Type: cigarettes Alcohol Intake: never Alcohol Intake Frequency:: other Occupational Status: employed Housing: house Household Members: spouse, children - Psychiatric History Expresses thoughts of harming self/others: None Suicide Plan Description: No Plan *Family Hx:: Cancer, Coronary Artery Disease, Diabetes, Heart Attack, Hyperlipidemia, Hypertension, Kidney Disease, Stroke, Thyroid Disorder Review of Systems - Review of Systems Review of systems:: pertinent systems reviewed and negative unless documented below - Constitutional Denies body ache(s), Denies chills - Eyes Denies blind spots, Denies blurry vision, Denies change in vision - ENT Denies abnormal hearing - *Cardiovascular Denies chest pain, Denies chest pain at rest, Denies shortness of breath, Denies irregular heart rhythm - *Respiratory Denies change in phlegm color, Denies chest congestion, Denies cough - *Gastrointestinal Denies abdominal pain, Denies bloating, Denies coffee ground vomit, Denies constipation - *Genitourinary Denies difficulty urinating - *Musculoskeletal Reports muscle weakness - *Neurologic Reports unsteadiness, Reports dizziness, Reports weakness, Denies abnormal walking, Denies localized weakness Exam Vital signs and Labs for Last 24 Hours: Temp Pulse Resp BP Pulse Ox 97.8 F 62 18 107/66 96 09/29/17 04:03 09/29/17 04:03 09/29/17 04:03 09/29/17 04:03 09/29/17 04:03 Laboratory Results - last 24 hr 09/28/17 12:18: WBC 13.0 H, RBC 4.81, Hgb 16.1, Hct 43.8, MCV 91.0, MCH 33.5 H, MCHC 36.8 H, RDW 13.8, Plt Count 280, MPV 8.0, Neut % (Auto) 65.2, Lymph % (Auto ) 23.7, Brantley % (Auto) 8.9, Eos % (Auto) 1.4, Baso % (Auto) 0.7, Neut # (Auto) 8.5 H, Lymph # (Auto) 3.1, Brantley # (Auto) 1.2 H, Eos # (Auto) 0.2, Baso # (Auto) 0.1 09/28/17 12:18: Sodium 140, Potassium 3.6, Chloride 104, Carbon Dioxide 22, Anion Gap 17.6 H, BUN 33 H, Creatinine 4.22 H, Estimated Creat Clear 32, Estimated GFR 15 L*, Est GFR ( Amer) 18 L*, Glucose 102, Calcium 9.1, Total Bilirubin 1.3 H, AST 22, ALT 54, Alkaline Phosphatase 159 H, Total Creatine Kinase 88, CK-MB (CK-2) 0.9, CK-MB (CK-2) Rel Index 1.0, Troponin I < 0.02, Total Protein 8.2, Albumin 4.4, Globulin 3.8 H, Albumin/Globulin Ratio 1.2 09/28/17 14:24: Troponin I < 0.02 09/28/17 17:10: Troponin I < 0.02 09/28/17 20:15: Troponin I < 0.02 09/29/17 05:35: Sodium 140, Potassium 3.7, Chloride 111 H, Carbon Dioxide 22, Anion Gap 10.7, BUN 24 H D, Creatinine 1.42 H D, Estimated Creat Clear 88, Estimated GFR 51 L, Est GFR ( Amer) 62 D, Glucose 107 H, Calcium 7.7 L D I & O for Last 24 hours: Intake & Output 09/26/17 09/27/17 09/28/17 09/29/17 11:59 11:59 11:59 11:59 Intake Total 1240 / 1240 Output Total 1300 / 1300 Balance -60 / -60 Weight 242 lb Narrative: This morning patient is awake, alert. Pleasant. Eating breakfast well. ENT exam clear. Lungs clear, heart rate, abdomen soft and nontender. Edema. Hospital Course Hospital Course: Patient was, diuretics and JULIANE inhibitors were held. Patient's creatinine this morning improved to 1.4. IV fluids were well tolerated. This morning exam is normal. He will be discharged home with medication changes and close follow-up as noted. Results Labs on day of discharge: Labs from last 24 hours 09/29/17 09/28/17 09/28/17 05:35 20:15 17:10 WBC RBC Hgb Hct MCV MCH MCHC RDW Plt Count MPV Neut % (Auto) Lymph % (Auto) Brantley % (Auto) Eos % (Auto) Baso % (Auto) Neut # (Auto) Lymph # (Auto) Brantley # (Auto) Eos # (Auto) Baso # (Auto) Sodium 140 Potassium 3.7 Chloride 111 H Carbon Dioxide 22 Anion Gap 10.7 BUN 24 H D Creatinine 1.42 H D Estimated Creat Clear 88 Estimated GFR 51 L Est GFR ( Amer) 62 D Glucose 107 H Calcium 7.7 L D Total Bilirubin AST ALT Alkaline Phosphatase Total Creatine Kinase CK-MB (CK-2) CK-MB (CK-2) Rel Index Troponin I < 0.02 < 0.02 Total Protein Albumin Globulin Albumin/Globulin Ratio 09/28/17 09/28/17 09/28/17 14:24 12:18 12:18 WBC 13.0 H RBC 4.81 Hgb 16.1 Hct 43.8 MCV 91.0 MCH 33.5 H MCHC 36.8 H RDW 13.8 Plt Count 280 MPV 8.0 Neut % (Auto) 65.2 Lymph % (Auto) 23.7 Brantley % (Auto) 8.9 Eos % (Auto) 1.4 Baso % (Auto) 0.7 Neut # (Auto) 8.5 H Lymph # (Auto) 3.1 Brantley # (Auto) 1.2 H Eos # (Auto) 0.2 Baso # (Auto) 0.1 Sodium 140 Potassium 3.6 Chloride 104 Carbon Dioxide 22 Anion Gap 17.6 H BUN 33 H Creatinine 4.22 H Estimated Creat Clear 32 Estimated GFR 15 L* Est GFR ( Amer) 18 L* Glucose 102 Calcium 9.1 Total Bilirubin 1.3 H AST 22 ALT 54 Alkaline Phosphatase 159 H Total Creatine Kinase 88 CK-MB (CK-2) 0.9 CK-MB (CK-2) Rel Index 1.0 Troponin I < 0.02 < 0.02 Total Protein 8.2 Albumin 4.4 Globulin 3.8 H Albumin/Globulin Ratio 1.2 DS: Diagnosis - Discharge Diagnosis (1) Acute kidney injury Status: Resolved (2) HHD (hypertensive heart disease) Status: Chronic (3) Hyperlipidemia Status: Chronic Discharge Medications Discharge Medications: Home Medications Medication Instructions Recorded Confirmed Type Albuterol Sulfate [Proair Hfa 2 puffs IH Q4HP PRN 07/19/17 09/28/17 History 90mcg/puff Inh] Aspirin [Low Dose Aspirin EC] 81 mg PO DAILY 07/19/17 09/28/17 History Atorvastatin Calcium [Atorvastatin 80 mg PO HS 07/19/17 09/28/17 History 80mg Tab] Esomeprazole Magnesium [Nexium] 40 mg PO HS 07/19/17 09/28/17 History Tamsulosin HCl [Flomax 0.4mg 0.4 mg PO DAILY 07/19/17 09/28/17 History capsule] Cariprazine HCl [Vraylar] 1.5 mg PO DAILY 07/20/17 09/28/17 History lisinopril 20 mg tablet 20 mg PO BID tab 09/16/17 09/28/17 History ARIPiprazole [Aripiprazole] 5 mg PO DAILY 09/28/17 09/28/17 History Bisoprolol Fumarate [Zebeta 5mg 5 mg PO DAILY 09/28/17 09/28/17 History tablet] Clopidogrel Bisulfate [Plavix 75mg 75 mg PO DAILY 09/28/17 09/28/17 History Tab] Furosemide [Furosemide 20mg Tab] 20 mg PO DAILY 09/28/17 09/28/17 History Ibuprofen [Ibu] 800 mg PO TIDP PRN 09/28/17 09/28/17 History Disposition Disposition: Home, Self-Care
== END 2017-09-29 09:40 | disposition home or self-care (01) ==
LOC: ER 12:07 → 2ND 12:07
PROVIDERS: ADMIT Emergency Medicine; ATTEND Internal Medicine Adolescent Medicine

== ENCOUNTER → 2017-10-03 11:36 | Outpatient (CLI) | payer MEDICAID, SELFPAY ==
[2017-10-03 12:28] LABS: Anion Gap 10.2 mEq/L (5-15); Blood Urea Nitrogen 11 mg/dL (7-18); Carbon Dioxide 26 mmol/L (21.0-32.0); Chloride 108 mmol/L (98-107); Creatinine,Serum 0.81 mg/dL (0.70-1.30); Estimated Glomerular Filt Rate 98 ml/min (>60); GFR (African American) 118 ML/MIN (>60); Glucose 99 mg/dL (74-106); Potassium 4.2 mmoL/L (3.5-5.1); Sodium 140 mmol/L (136-145)
== END ==
PROVIDERS: Visit Provider Internal Medicine Adolescent Medicine
DX: Z00.00 Encounter for general adult medical examination without abnormal findings (principal)
CPT/HCPCS: 36415; 80048

== ENCOUNTER → 2017-11-20 13:19 | Outpatient (CLI) | payer MEDICAID, SELFPAY ==
[2017-11-20 13:47] LABS: Blood Urea Nitrogen 10 mg/dL (7-18); Creatinine,Serum 0.85 mg/dL (0.70-1.30); Estimated Glomerular Filt Rate 93 ml/min (>60); GFR (African American) 112 ML/MIN (>60)
--- NOTE | 2017-11-20 14:19 | CT_ITS ---
CT chest w con HISTORY: History of tobacco abuse with 45 pack-year smoking history, follow-up abnormal screening CT, emphysema ITS.REASON: PULMONARY NODULE ORDERING PHYSICIAN: Kareem Duenas MD PATIENT AGE: 57 years COMPARISON: None TECHNIQUE: Axial images obtained following the administration of 75 mL of Isovue 370 . Sagittal, and coronal reformatted images are also generated and reviewed. All CT scans at the facility use one or more dose reduction, viz: automated exposure control, ma/kV adjustment per patient size (including targeted exams where dose is matched to indication, i.e. head), or iterative reconstruction technique. FINDINGS: Scattered small nodes present in the mediastinum and gabriela some of which are calcified. Coronary artery calcification and/or stents noted. Normal heart size. Minimal pericardial thickening anteriorly nonspecific. There are scattered calcified granulomas and scattered fibrotic changes as before with centrilobular emphysema. There is a left apical nodule present at 4 mm. This nodule however does appear calcified at this time. No suspicious pulmonary nodules are apparent. A calcified granulomas present in the right upper lobe with some surrounding fibrotic change similar to the previous exam. There is a questionable filling defect involving the ascending branch of the right pulmonary artery . This could be related to mixing of opacified and unopacified blood. Chronic pulmonary embolus is also a consideration. Dedicated CT pulmonary angiogram may be of further value if clinically are noted. There are no previous exams available for comparison. No evidence of aortic aneurysm. There are degenerative changes in the thoracic spine with mild chronic wedging involving the L1 vertebral body. Upper abdominal images show cholelithiasis and nonobstructing bilateral renal calculi. A 4 mm stone is present in the upper pole the right kidney and a 3 mm stone in the mid polar region of the left kidney. IMPRESSION: 1. Centrilobular emphysema with old granulomatous disease. No suspicious pulmonary nodules are evident. 2. Possible chronic pulmonary embolus involving descending branch of the right pulmonary artery versus a mixing of opacified and unopacified blood. Dedicated CT pulmonary angiogram may confirm. 3. Cholelithiasis and bilateral nonobstructing renal calculi
== END ==
PROVIDERS: Family Provider Internal Medicine Adolescent Medicine; PCP Internal Medicine Adolescent Medicine; Visit Provider Internal Medicine Adolescent Medicine
DX: R91.1 Solitary pulmonary nodule (principal)
CPT/HCPCS: 36415; 71260; 82565; 84520; Q9967

== ENCOUNTER → 2017-11-25 11:40 | Outpatient (CLI) | payer MEDICAID, SELFPAY ==
--- NOTE | 2017-11-25 11:45 | CT_ITS ---
CT angio chest HISTORY: Possible pulmonary embolus, tobacco use, positive smoking history: Follow-up abnormal chest CT ITS.REASON: ABNORMAL FINDINGS ON CT SCAN, DYSPNEA ON EXERTION ORDERING PHYSICIAN: Kareem Duenas MD PATIENT AGE: 57 years COMPARISON: None TECHNIQUE: Axial images obtained following the administration of 75 mL of Isovue 370 . Sagittal, and coronal reformatted images are also generated and reviewed. All CT scans at the facility use one or more dose reduction, viz: automated exposure control, ma/kV adjustment per patient size (including targeted exams where dose is matched to indication, i.e. head), or iterative reconstruction technique. FINDINGS: On the previous study there was question of pulmonary embolus with peripheral filling defect in the descending branch of the right pulmonary artery. Today's exam is dictated for the pulmonary arteries. There is no evidence of pulmonary embolus. Previously noted filling defect is felt to have represented mixing of opacified and unopacified blood. No mediastinal or hilar mass. Small nodes are present in the gabriela. There is mild thickening of the superior recess of the pericardium posteriorly nonspecific. Normal heart size. Gallstones are noted. Centrilobular emphysema with old granulomatous disease. No suspicious pulmonary nodules infiltrates or effusions are evident. Fibrotic changes are present in the left lung base. There are degenerative changes in thoracic spine with mild chronic wedging of L1. IMPRESSION: 1. No evidence of pulmonary embolus. 2. Emphysema/COPD with old granulomatous disease.
--- NOTE | 2017-11-25 12:35 | HMH.ITSHM ---
BISPROLOL PLAVIX NEXIUM ATORVASTATIN TAMSULOSIN ASA
== END ==
PROVIDERS: Family Provider Internal Medicine Adolescent Medicine; PCP Internal Medicine Adolescent Medicine; Visit Provider Internal Medicine Adolescent Medicine
DX: R93.8 Abnormal findings on diagnostic imaging of other specified body structures (principal); R06.09 Other forms of dyspnea
CPT/HCPCS: 71275; Q9967

== ENCOUNTER → 2017-11-28 12:45 | Outpatient (CLI) | payer MEDICAID, SELFPAY ==
--- NOTE | 2017-11-28 | CA_ITS ---
PROCEDURE: 2-D M-mode and color Doppler study INDICATIONS FOR THE TEST: Chest pain+ COPD+ Heart Murmur+ Tobacco SmokingEX Palpitations+ Fatigue Syncope Edema Hypertension+Diabetes Mellitus Rheumatic Fever SOB+KITCHEN+Obesity Hyperlipidemia+ Family History HD+ Additional History CAD, emphysema, 4 stents ordered as a bubble study PATIENT INFORMATION HEIGHT: 72 WEIGHT: 247 GENDER: Male B/P: 113/72 2-D/M-MODE INTERPRETATION: 2-D MEASUREMENTS OBSERVED VALUES IN CMS Right Ventricular Dimension (RVDd) 2.5 Interventricular Septum (Thickness)(IVsd) 0.9 Left Ventricular Internal Dimensions(LVIDd) 4.3 Left Ventricular Posterior Wall (Thickness)(LVPWd) 1.0 Aortic Root 3.2 Aortic Cusp Separation 2.4 Left Atrial Dimensions (LAD) 3.8 2D 1. Left atrium is mildly enlarged, left ventricle is normal size, there is preserved left ventricular systolic function, visually estimated ejection fraction 55% with no obvious regional wall motion abnormality. 2. The right atrium and right ventricle are mildly enlarged with normal contractility. 3. The aortic valve is minimally thickened and fibrosed. 4. The mitral and tricuspid valve leaflets are minimally thickened. 5. The pulmonic valve is poorly visualized. 6. No significant pericardial effusion noted. DOPPLER INTERROGATION: Doppler interrogation of the aortic, mitral and tricuspid valvular presence of mild mitral and moderate to severe tricuspid regurgitation, calculated right ventricular systolic pressure is 55 mmHg consistent with moderate pulmonary hypertension. Grade 1 diastolic dysfunction seen with tissue Doppler evidence of raised left atrial pressure. CONCLUSION: 1. Biatrial enlargement, normal left ventricular size, preserved left ventricular systolic function, visually estimated ejection fraction 55% with no regional wall motion abnormality. Grade 1 diastolic dysfunction seen with tissue Doppler evidence of raised left atrial pressure. 2. Mildly enlarged right ventricle with normal contractility. 3. Mild mitral and moderate to severe tricuspid regurgitation, calculated right ventricular systolic pressure is 55 mmHg consistent with moderate pulmonary hypertension. 4. No significant pericardial effusion noted.
== END ==
PROVIDERS: Family Provider Internal Medicine Adolescent Medicine; PCP Internal Medicine Adolescent Medicine; Visit Provider Internal Medicine Adolescent Medicine
DX: R06.09 Other forms of dyspnea (principal)
CPT/HCPCS: 93306

== ENCOUNTER → 2017-12-16 14:43 | Outpatient (CLI) | payer MEDICAID, SELFPAY ==
--- NOTE | 2017-12-16 14:46 | NVE_ITS ---
Venous Exam Indications: 729.5 Pain in limb. IMPRESSIONS 1. There is no evidence of significant Reflux. 2. No evidence of deep or superficial vein thrombosis involving the right lower extremity and left lower extremity Complete lower extremity venous duplex evaluation. Doppler flow study including spectral analysis, color and lopez scale imaging. Location: Vascular laboratory. Patient status: Outpatient. Tables: Venous flow and imaging: + +-------+ + Location Overall Flow properties + +-------+ + Right common femoral Patent Normal phasicity; spontaneous; normal augmentation; compressible + +-------+ + Right saphenofemoral junction Patent Compressible + +-------+ + Right profunda femoral Patent Compressible + +-------+ + Right femoral Patent Normal phasicity; spontaneous; normal augmentation; compressible; no reflux + +-------+ + Right greater saphenous Patent Normal phasicity; spontaneous; normal augmentation; compressible + +-------+ + Right popliteal Patent Normal phasicity; spontaneous; normal augmentation; compressible + +-------+ + Right posterior tibial Patent Compressible + +-------+ + Right peroneal Patent Compressible + +-------+ + Right gastrocnemius Patent Compressible + +-------+ + Right soleal Patent Compressible + +-------+ + Left common femoral Patent Normal phasicity; spontaneous; normal augmentation; compressible + +-------+ + Left saphenofemoral junction Patent Compressible + +-------+ + Left profunda femoral Patent Compressible + +-------+ + Left femoral Patent Normal phasicity; spontaneous; normal augmentation; compressible + +-------+ + Left greater saphenous Patent Normal phasicity; spontaneous; normal augmentation; compressible + +-------+ + Left popliteal Patent Normal phasicity; spontaneous; normal augmentation; compressible + +------
[2017-12-16 16:30] LABS: D-Dimer < 100 ng/mL (0-400)
== END ==
PROVIDERS: Internal Medicine Cardiovascular Disease; PCP Internal Medicine Adolescent Medicine; Visit Provider Internal Medicine
DX: I07.1 Rheumatic tricuspid insufficiency (principal); I25.10 Atherosclerotic heart disease of native coronary artery without angina pectoris; I27.20 Pulmonary hypertension, unspecified; J98.4 Other disorders of lung; R06.02 Shortness of breath; R07.2 Precordial pain
CPT/HCPCS: 36415; 85378; 93970; 94060

== ENCOUNTER → 2017-12-31 09:43 | Outpatient (CLI) | payer MEDICAID, SELFPAY ==
--- NOTE | 2017-12-31 09:45 | NM_ITS ---
NM pul vent and perfuse CLINICAL INDICATION: Shortness of air, bradycardia ITS.REASON: to look for CTEPH ORDERING PHYSICIAN: Howard Yarbrough MD PATIENT AGE: 57 years Comparison: 12/31/2017 DOSE: 37.4 m technetium DTPA inhale. 7.76 mCi technetium MAA IV FINDINGS: There is homogeneous distribution of radiopharmaceutical to the lungs on both the perfusion and ventilation images with no mismatching defects evident. IMPRESSION: Unremarkable pulmonary ventilation and perfusion scan. No evidence to support chronic thromboembolic pulmonary hypertension
--- NOTE | 2017-12-31 11:17 | XR_ITS ---
XR chest 2V HISTORY: ITS.REASON: YOSEF [place] ORDERING PHYSICIAN: Howard Yarbrough MD PATIENT AGE: 57 years COMPARISON: None FINDINGS: The cardiomediastinal silhouette and pulmonary vascularity are within normal limits. The lungs are clear without infiltrates, suspicious nodules, or pleural effusions. Coronary artery stents are present. There are degenerative changes in the thoracic spine with mild chronic wedging of the midthoracic spine similar to the previous exam. No acute bony abnormalities. IMPRESSION: No acute finding
== END ==
PROVIDERS: PCP Internal Medicine Adolescent Medicine; Visit Provider Internal Medicine Cardiovascular Disease
DX: R07.9 Chest pain, unspecified (principal); I27.20 Pulmonary hypertension, unspecified; R06.02 Shortness of breath; R94.30 Abnormal result of cardiovascular function study, unspecified; E78.4 Other hyperlipidemia; I07.1 Rheumatic tricuspid insufficiency; I11.9 Hypertensive heart disease without heart failure; I25.10 Atherosclerotic heart disease of native coronary artery without angina pectoris; J43.8 Other emphysema; J98.4 Other disorders of lung; Z87.891 Personal history of nicotine dependence
CPT/HCPCS: 71046; 78582; A9540; A9567

== ENCOUNTER → 2018-04-27 12:09 | Outpatient (CLI) | payer MEDICAID, SELFPAY ==
[2018-04-27 13:41] LABS: Anion Gap 11.5 mEq/L (5-15); Blood Urea Nitrogen 11 mg/dL (7-18); Calcium 9.4 mg/dL (8.5-10.1); Carbon Dioxide 31 mmol/L (21.0-32.0); Chloride 105 mmol/L (98-107); Creatinine,Serum 0.67 mg/dL (0.70-1.30); Estimated Glomerular Filt Rate 122 ml/min (>60); GFR (African American) 147 ML/MIN (>60); Glucose 90 mg/dL (74-106); Potassium 3.5 mmoL/L (3.5-5.1); Sodium 144 mmol/L (136-145)
== END ==
PROVIDERS: Visit Provider Physician Assistant
DX: I07.1 Rheumatic tricuspid insufficiency (principal); I27.20 Pulmonary hypertension, unspecified; J98.4 Other disorders of lung; R00.2 Palpitations; R06.02 Shortness of breath
CPT/HCPCS: 36415; 80048

== ENCOUNTER → 2018-05-01 13:59 | Outpatient (CLI) | payer MEDICAID, SELFPAY ==
--- NOTE | 2018-05-01 14:02 | CA_ITS ---
PROCEDURE: 2-D M-mode and color Doppler study INDICATIONS FOR THE TEST: Chest pain COPDX Heart MurmurX Tobacco SmokingEX PalpitationsX Fatigue Syncope Edema HypertensionXDiabetes Mellitus Rheumatic Fever SOBXDOE ObesityXHyperlipidemia Family History HD Additional History CAD,PHTN,PAC'S PATIENT INFORMATION HEIGHT: 72 WEIGHT:195 GENDER: Male B/P:140/68 2-D/M-MODE INTERPRETATION: 2-D MEASUREMENTS OBSERVED VALUES IN CMS Right Ventricular Dimension (RVDd) 2.7 Interventricular Septum (Thickness)(IVsd) .9 Left Ventricular Internal Dimensions(LVIDd) 5.0 Left Ventricular Posterior Wall (Thickness)(LVPWd) 1.0 Aortic Root 4.0 Aortic Cusp Separation 2.1 Left Atrial Dimensions (LAD) 3.2 2D 1. Left atrium is mildly enlarged, left ventricle is normal size, there is no concentric left ventricular hypertrophy, visually ejection fraction of 55% with no regional wall motion abnormality. 2. The right atrium and right ventricle are mildly enlarged with normal contractility. 3. The aortic valve is minimally thickened and fibrosed. 4. The mitral and tricuspid valve leaflets are minimally thickened . 5. The pulmonic valve is poorly visualized. 6. No significant pericardial effusion noted. DOPPLER INTERROGATION: Doppler interrogation of the aortic, mitral and tricuspid valvular presence of mild mitral and tricuspid regurgitation, tricuspid regurgitation jet velocity is inadequate for calculation of the right ventricular systolic pressure, grade 1 diastolic dysfunction seen without tissue Doppler evidence of raised left atrial pressure. CONCLUSION: 1. Mildly enlarged left atrium, normal left ventricular size, visually estimated ejection fraction 55% with no regional wall motion abnormality, grade 1 diastolic dysfunction seen without tissue Doppler evidence of raised left atrial pressure. 2. Mildly enlarged right ventricle with normal contractility. 3. Mild mitral and tricuspid regurgitation 4. No significant pericardial effusion noted.
== END ==
PROVIDERS: PCP Internal Medicine Adolescent Medicine; Visit Provider Internal Medicine
DX: R06.02 Shortness of breath (principal); I07.1 Rheumatic tricuspid insufficiency; I27.20 Pulmonary hypertension, unspecified; J98.4 Other disorders of lung; R00.2 Palpitations; R94.30 Abnormal result of cardiovascular function study, unspecified
CPT/HCPCS: 93306

== ENCOUNTER → 2018-05-26 14:40 | Outpatient (CLI) | payer MEDICAID, SELFPAY | PROVIDERS: PCP Internal Medicine Adolescent Medicine; Visit Provider Physician Assistant | DX: G47.9 Sleep disorder, unspecified (principal); R06.02 Shortness of breath; R06.83 Snoring; R40.0 Somnolence | CPT/HCPCS: 95806 ==

== ENCOUNTER → 2018-07-29 10:06 | Outpatient (CLI) | payer MEDICAID, SELFPAY ==
[2018-07-29 10:48] LABS: Basophils # 0.1 K/mm3 (0-0.2); Eosinophils # 0.1 K/mm3 (0.0-0.4); Eosinophils % 1.8 % (0.1-12.0); Hematocrit 46.5 % (42.0-52.0); Hemoglobin 15.6 g/dL (14.1-18.0); Lymphocytes % 31.5 % (10-50); Mean Corpuscular HGB Conc 33.6 g/dL (31.8-35.4); Mean Corpuscular Hemoglobin 31.5 pg (27.0-31.2); Mean Corpuscular Volume 93.7 fl (80-94); Mean Platelet Volume 7.9 fl (7.4-10.4); Monocytes # 0.4 K/mm3 (0.1-1.0); Monocytes % 6.2 % (1.7-9.3); Neutrophils # 3.8 K/mm3 (1.8-7.8); Neutrophils % 59.5 % (37.0-80.0); Platelet Count 218 K/mm3 (142-424); Red Blood Count 4.96 M/mm3 (4.60-6.20); Red Cell Distribution Width 13.4 % (11.5-17.5); White Blood Count 6.3 K/mm3 (4.8-10.8)
[2018-07-29 12:39] LABS: Alanine Aminotransferase 40 U/L (12-78); Albumin/Globulin Ratio 1.3 (1.1-1.8); Alkaline Phosphatase 124 U/L (46-116); Anion Gap 14.8 mEq/L (5-15); Aspartate Amino Transferase 13 U/L (15-37); Bilirubin,Total 1.6 mg/dL (0.2-1.0); Blood Urea Nitrogen 15 mg/dL (7-18); Calcium 9.2 mg/dL (8.5-10.1); Carbon Dioxide 28 mmol/L (21.0-32.0); Chloride 105 mmol/L (98-107); Chol/HDL Ratio 3.7 (1-3.5); Cholesterol 146 mg/dL (140-200); Creatinine,Serum 0.61 mg/dL (0.70-1.30); Estimated Glomerular Filt Rate 135 ml/min (>60); Free Thyroxine Index 2.9 ug/dL (5.93-13.13); GFR (African American) 164 ML/MIN (>60); Glucose 84 mg/dL (74-106); HDL Cholesterol 40 mg/dL (27-67); LDL Cholesterol 96 mg/dL (0-130); Magnesium 1.8 mg/dL (1.4-2.2); Potassium 3.8 mmoL/L (3.5-5.1); Sodium 144 mmol/L (136-145); T4 (Thyroxine) 9.5 ug/dl (4.7-13.3); Thyroid Stimulating Hormone 2.01 uIU/ml (0.358-3.740); Triglycerides 48 mg/dL (30-200); Triiodothryronine (T3) Uptake 31 % (31-39); VLDL Cholesterol 10 mg/dL (0-40)
== END ==
PROVIDERS: Visit Provider Internal Medicine Adolescent Medicine
DX: E78.5 Hyperlipidemia, unspecified (principal); I25.10 Atherosclerotic heart disease of native coronary artery without angina pectoris; R63.4 Abnormal weight loss
CPT/HCPCS: 36415; 80053; 80061; 83735; 84436; 84443; 84479; 85025

== ENCOUNTER → 2018-10-14 10:40 | Outpatient (CLI) | payer MEDICAID, SELFPAY ==
[2018-10-14 11:15] LABS: Basophils # 0.1 K/mm3 (0-0.2); Basophils % 0.6 % (0.1-2.0); Eosinophils # 0.1 K/mm3 (0.0-0.4); Eosinophils % 1.5 % (0.1-12.0); Hemoglobin 14.2 g/dL (14.1-18.0); Lymphocytes # 1.8 K/mm3 (0.7-4.5); Lymphocytes % 20.9 % (10-50); Mean Corpuscular HGB Conc 32.2 g/dL (31.8-35.4); Mean Platelet Volume 7.9 fl (7.4-10.4); Monocytes # 0.6 K/mm3 (0.1-1.0); Neutrophils # 5.9 K/mm3 (1.8-7.8); Platelet Count 224 K/mm3 (142-424); Red Blood Count 4.73 M/mm3 (4.60-6.20); Red Cell Distribution Width 13.8 % (11.5-17.5); White Blood Count 8.5 K/mm3 (4.8-10.8)
[2018-10-14 11:51] LABS: Alanine Aminotransferase 36 U/L (12-78); Albumin Level 3.4 gm/dL (3.4-5.0); Albumin/Globulin Ratio 1.3 (1.1-1.8); Alkaline Phosphatase 108 U/L (46-116); Amylase 45 U/L (25-115); Anion Gap 12.5 mEq/L (5-15); Aspartate Amino Transferase 18 U/L (15-37); Bilirubin,Total 1.2 mg/dL (0.2-1.0); Blood Urea Nitrogen 17 mg/dL (7-18); Calcium 8.9 mg/dL (8.5-10.1); Carbon Dioxide 29 mmol/L (21.0-32.0); Chloride 111 mmol/L (98-107); Estimated Glomerular Filt Rate 69 ml/min (>60); GFR (African American) 83 ML/MIN (>60); Globulin 2.7 gm/dl (1.3-3.2); Glucose 92 mg/dL (74-106); Lipase 103 u/L (73-393); Potassium 4.5 mmoL/L (3.5-5.1); Sodium 148 mmol/L (136-145); Total Protein,Serum 6.1 gm/dL (6.4-8.2)
== END ==
PROVIDERS: Visit Provider Surgery
DX: K85.90 Acute pancreatitis without necrosis or infection, unspecified (principal); R10.9 Unspecified abdominal pain; R63.4 Abnormal weight loss
CPT/HCPCS: 36415; 80053; 82150; 83690; 85025

== ENCOUNTER → 2018-10-27 09:31 | Outpatient (CLI) | payer MEDICAID, SELFPAY ==
--- NOTE | 2018-10-27 09:38 | CT_ITS ---
CT abdomen pelvis w con CLINICAL INDICATION: Abdominal pain, weight loss, nausea ITS.REASON: abdominal pain and weight loss ORDERING PHYSICIAN: Deepak Herrera MD PATIENT AGE: 58 years COMPARISON: 05/04/2018 TECHNIQUE: Contrast Used:75ml Optiray 350 Oral Contrast: 450ml Redicat Axial images obtained with sagittal and coronal reformats. All CT scans at the facility use one or more dose reduction, viz: automated exposure control, ma/kV adjustment per patient size (including targeted exams where dose is matched to indication, i.e. head), or iterative reconstruction technique. FINDINGS: Lower thorax: No acute finding The liver, spleen, adrenal glands, and pancreas have an unremarkable appearance. There are small stones within the inferior aspect of the gallbladder. No renal or ureteral calculi. No hydronephrosis. No evidence of appendicitis, intestinal obstruction, or free air. There is moderate diffuse thickening of the sigmoid colon and rectosigmoid region consistent with colitis and proctitis. No evidence of diverticulitis. There is a small amount of fluid in the rectovesical pouch. There is mild diffuse edema of the subcutaneous tissues. There is mild chronic wedging of L1 and there are degenerative changes in the hips. IMPRESSION: 1. The findings are compatible with colitis of the sigmoid colon and rectosigmoid region with a small amount fluid in rectovesical pouch. 2. Mild diffuse subcutaneous edema. 3. Cholelithiasis
== END ==
PROVIDERS: PCP Internal Medicine Adolescent Medicine; Visit Provider Surgery
DX: K46.9 Unspecified abdominal hernia without obstruction or gangrene (principal)
CPT/HCPCS: 74177; Q9967

== ENCOUNTER → 2018-11-02 10:48 | Outpatient (CLI) | payer MEDICAID, SELFPAY ==
[2018-11-02 11:29] LABS: Basophils % 0.5 % (0.1-2.0); Eosinophils # 0.1 K/mm3 (0.0-0.4); Eosinophils % 1.6 % (0.1-12.0); Hematocrit 45.3 % (42.0-52.0); Hemoglobin 14.5 g/dL (14.1-18.0); Lymphocytes # 1.9 K/mm3 (0.7-4.5); Lymphocytes % 24.5 % (10-50); Mean Corpuscular HGB Conc 32.1 g/dL (31.8-35.4); Mean Corpuscular Hemoglobin 30.6 pg (27.0-31.2); Mean Corpuscular Volume 95.3 fl (80-94); Mean Platelet Volume 7.9 fl (7.4-10.4); Monocytes # 0.4 K/mm3 (0.1-1.0); Monocytes % 5.5 % (1.7-9.3); Neutrophils # 5.2 K/mm3 (1.8-7.8); Neutrophils % 67.8 % (37.0-80.0); Platelet Count 265 K/mm3 (142-424); Red Blood Count 4.75 M/mm3 (4.60-6.20); Red Cell Distribution Width 14.2 % (11.5-17.5); White Blood Count 7.7 K/mm3 (4.8-10.8)
[2018-11-02 12:45] LABS: Alanine Aminotransferase 30 U/L (12-78); Albumin Level 3.3 gm/dL (3.4-5.0); Albumin/Globulin Ratio 1.2 (1.1-1.8); Alkaline Phosphatase 114 U/L (46-116); Anion Gap 10.1 mEq/L (5-15); Aspartate Amino Transferase 13 U/L (15-37); Bilirubin,Total 1.3 mg/dL (0.2-1.0); Blood Urea Nitrogen 10 mg/dL (7-18); Calcium 8.6 mg/dL (8.5-10.1); Carbon Dioxide 33 mmol/L (21.0-32.0); Chloride 106 mmol/L (98-107); Creatinine,Serum 0.67 mg/dL (0.70-1.30); Estimated Glomerular Filt Rate 121 ml/min (>60); Free Thyroxine Index 2.9 ug/dL (5.93-13.13); GFR (African American) 147 ML/MIN (>60); Globulin 2.7 gm/dl (1.3-3.2); Glucose 94 mg/dL (74-106); Potassium 3.1 mmoL/L (3.5-5.1); Sodium 146 mmol/L (136-145); T4 (Thyroxine) 9.1 ug/dl (4.7-13.3); Thyroid Stimulating Hormone 2.26 uIU/ml (0.358-3.740); Triiodothryronine (T3) Uptake 32 % (31-39)
== END ==
PROVIDERS: Visit Provider Internal Medicine Adolescent Medicine
DX: I25.10 Atherosclerotic heart disease of native coronary artery without angina pectoris (principal); R63.4 Abnormal weight loss; M19.90 Unspecified osteoarthritis, unspecified site
CPT/HCPCS: 36415; 80053; 84436; 84443; 84479; 85025; 86618

== ENCOUNTER → 2018-11-09 08:44 | Outpatient (CLI) | payer MEDICAID, SELFPAY ==
--- NOTE | 2018-11-09 08:45 | FL_ITS ---
FL upper GI small bowel HISTORY: ITS.REASON: abdominal pain and weight loss ORDERING PHYSICIAN: Deepak Herrera MD PATIENT AGE: 58 years Comparison: None FINDINGS: The esophagus, stomach, and duodenum have an unremarkable appearance. There is no evidence of hiatal hernia. No ulcer or mass evident. No mucosal abnormalities apparent. There is normal peristalsis. The duodenal C-loop is nondisplaced. The small bowel has an unremarkable appearance. No obstruction, mass, mucosal abnormalities, or other significant anomalies. FLUOROSCOPY TIME : 1 minute and 49 seconds. IMPRESSION: Negative upper GI Negative small bowel follow-through
== END ==
PROVIDERS: PCP Internal Medicine Adolescent Medicine; Visit Provider Surgery
DX: R13.10 Dysphagia, unspecified (principal)
CPT/HCPCS: 74245

== ENCOUNTER → 2019-01-25 11:57 | Outpatient (CLI) | payer OTHER, SELFPAY ==
[2019-01-25 14:26] LABS: Anion Gap 7.8 mEq/L (5-15); Blood Urea Nitrogen 13 mg/dL (7-18); Calcium 8.7 mg/dL (8.5-10.1); Carbon Dioxide 33 mmol/L (21.0-32.0); Chloride 110 mmol/L (98-107); Creatinine,Serum 0.75 mg/dL (0.70-1.30); Estimated Glomerular Filt Rate 107 ml/min (>60); GFR (African American) 129 ML/MIN (>60); Glucose 95 mg/dL (74-106); Potassium 3.8 mmoL/L (3.5-5.1); Sodium 147 mmol/L (136-145)
== END ==
PROVIDERS: Visit Provider Internal Medicine Adolescent Medicine
DX: E87.6 Hypokalemia (principal)
CPT/HCPCS: 36415; 80048

== ENCOUNTER → 2019-09-03 10:25 | Outpatient (CLI) | payer OTHER, SELFPAY ==
[2019-09-03 11:12] LABS: Basophils # 0.1 K/mm3 (0-0.2); Eosinophils # 0.2 K/mm3 (0.0-0.4); Eosinophils % 2.9 % (0.1-12.0); Hematocrit 46.3 % (42.0-52.0); Hemoglobin 15.9 g/dL (14.1-18.0); Lymphocytes # 2.2 K/mm3 (0.7-4.5); Lymphocytes % 36.1 % (10-50); Mean Corpuscular HGB Conc 34.4 g/dL (31.8-35.4); Mean Corpuscular Hemoglobin 33.2 pg (27.0-31.2); Mean Corpuscular Volume 96.3 fl (80-94); Mean Platelet Volume 8.3 fl (7.4-10.4); Monocytes # 0.4 K/mm3 (0.1-1.0); Monocytes % 5.7 % (1.7-9.3); Neutrophils # 3.3 K/mm3 (1.8-7.8); Neutrophils % 54.3 % (37.0-80.0); Platelet Count 197 K/mm3 (142-424); Red Blood Count 4.81 M/mm3 (4.60-6.20); Red Cell Distribution Width 13.6 % (11.5-17.5); White Blood Count 6.1 K/mm3 (4.8-10.8)
[2019-09-03 12:22] LABS: Chloride 107 mmol/L (98-107); Potassium 4.4 mmoL/L (3.5-5.1); Sodium 145 mmol/L (136-145)
[2019-09-03 12:24] LABS: Alanine Aminotransferase 16 U/L (12-78); Aspartate Amino Transferase 20 U/L (17-59); Blood Urea Nitrogen 14 mg/dl (9-20); Estimated Glomerular Filt Rate 115 ml/min (>60); GFR (African American) 139 ML/MIN (>60)
[2019-09-03 12:25] LABS: Albumin Level 4.1 g/dl (3.5-5.0); Albumin/Globulin Ratio 1.5 (1.1-1.8); Alkaline Phosphatase 100 U/L (38-126); Anion Gap 10.4 mEq/L (5-15); Bilirubin,Total 0.8 mg/dl (0.2-1.3); Calcium 9.2 mg/dl (8.4-10.2); Carbon Dioxide 32 mmol/L (22.0-30.0); Chol/HDL Ratio 2.6 (1-3.5); Cholesterol 115 mg/dl (140-200); Globulin 2.7 g/dL (1.3-3.2); Glucose 98 mg/dl (74-100); HDL Cholesterol 45 mg/dl (40-60); Total Protein,Serum 6.8 g/dl (6.3-8.2); Triglycerides 58 mg/dl (30-150); VLDL Cholesterol 12 mg/dL (0-40)
[2019-09-03 12:37] LABS: Direct LDL Cholesterol 73.83 mg/dL (100-129)
[2019-09-03 12:59] LABS: Prostate Specific Ag Screen 0.5 ng/ml (0.0-4.0)
== END ==
PROVIDERS: Visit Provider Internal Medicine Adolescent Medicine
DX: I25.10 Atherosclerotic heart disease of native coronary artery without angina pectoris (principal); E78.5 Hyperlipidemia, unspecified; Z12.5 Encounter for screening for malignant neoplasm of prostate
CPT/HCPCS: 36415; 80053; 80061; 85025; G0103

== ENCOUNTER → 2020-10-25 09:58 | Outpatient (CLI) | payer OTHER, SELFPAY ==
[2020-10-25 10:25] LABS: Basophils # 0.1 K/mm3 (0-0.2); Basophils % 1.1 % (0.1-2.0); Eosinophils # 0.5 K/mm3 (0.0-0.4); Eosinophils % 5.3 % (0.1-12.0); Lymphocytes % 34.6 % (10-50); Mean Corpuscular HGB Conc 33.9 g/dL (31.8-35.4); Mean Corpuscular Hemoglobin 31.7 pg (27.0-31.2); Mean Corpuscular Volume 93.3 fl (80-94); Mean Platelet Volume 9.1 fl (7.4-10.4); Monocytes # 0.5 K/mm3 (0.1-1.0); Monocytes % 6.4 % (1.7-9.3); Neutrophils # 4.5 K/mm3 (1.8-7.8); Neutrophils % 52.7 % (37.0-80.0); Platelet Count 231 K/mm3 (142-424); Red Blood Count 5.04 M/mm3 (4.60-6.20); Red Cell Distribution Width 13.7 % (11.5-17.5); White Blood Count 8.5 K/mm3 (4.8-10.8)
[2020-10-25 10:35] LABS: Hemoglobin A1C 5.1 % (4.0-6.0)
[2020-10-25 10:56] LABS: Alanine Aminotransferase 19 U/L (12-78); Albumin Level 4.4 g/dl (3.5-5.0); Albumin/Globulin Ratio 1.8 (1.1-1.8); Alkaline Phosphatase 96 U/L (38-126); Aspartate Amino Transferase 22 U/L (17-59); Bilirubin,Total 0.8 mg/dl (0.2-1.3); Blood Urea Nitrogen 17 mg/dl (9-20); Calcium 9.1 mg/dl (8.4-10.2); Carbon Dioxide 31 mmol/L (22.0-30.0); Chloride 108 mmol/L (98-107); Chol/HDL Ratio 3.1 (1-3.5); Cholesterol 117 mg/dl (140-200); Estimated Glomerular Filt Rate 115 ml/min (>60); GFR (African American) 139 ML/MIN (>60); Globulin 2.5 g/dL (1.3-3.2); Glucose 100 mg/dl (74-100); HDL Cholesterol 38 mg/dl (40-60); Sodium 146 mmol/L (136-145); Total Protein,Serum 6.9 g/dl (6.3-8.2); Triglycerides 68 mg/dl (30-150); VLDL Cholesterol 14 mg/dL (0-40)
[2020-10-25 11:07] LABS: Direct LDL Cholesterol 61.63 mg/dL (100-129)
== END ==
PROVIDERS: Visit Provider Internal Medicine Adolescent Medicine
DX: I25.10 Atherosclerotic heart disease of native coronary artery without angina pectoris (principal); E78.5 Hyperlipidemia, unspecified
CPT/HCPCS: 36415; 80053; 80061; 83036; 85025

== ENCOUNTER → 2020-11-21 06:50 | Outpatient (CLI) | payer OTHER, SELFPAY ==
--- NOTE | 2020-11-21 06:57 | CT_ITS ---
PROCEDURE: CT LUNG SCREENING CLINICAL INDICATION: NICOTINE DEPENDENCE COMPARISON: No exams were available for comparison TECHNIQUE: The exam was performed on a GE Light Speed [address] scanner using 2.90 mGy CTDI. A low dose helical CT CHEST was performed on a multi-detector scanner. All CT scans at the facility use one or more dose reduction, viz: automated exposure control, ma/kV adjustment per patient size (including targeted exams where dose is matched to indication, i.e. head), or iterative reconstruction technique. The LDCT was performed in a facility that meets the criteria for the screening program. Data regarding this exam was submitted to ACR which is an approved registry. The order for this exam indicates that it came as a result of a lung cancer screening counseling shard decision-making visit that included all the elements required of such a visit including smoking cessation. The radiologist interpreting this exam meets the CMS criteria for the LDCT lung cancer screening program. The exam is reported using the Lung-RADS classification scale and reported to the ACR registry. NOTE: This study was performed for the specific purposes of lung cancer screening and is not an alternative to diagnostic chest CT. RADIATION DOSE: CTDI vol(CT dose Index-volume) = 2.90mG DLP (Dose Length Product) = 120.37 mGcm FINDINGS: COPD changes. Old granulomatous disease with scattered calcified nodules and calcified hilar lymph nodes. Stable 3 mm noncalcified nodule right upper lobe . No suspicious nodules apparent OTHER FINDINGS: Multilevel degenerative changes in the thoracic spine with mild kyphosis. Mild wedging of L1 and T6 through T12 not significantly changed. Coronary artery calcification and/or stents noted. Cholelithiasis. Right nephrolithiasis IMPRESSION: Lung-RADS Category 2 Benign Appearance or Behavior Follow-up: Continue annual screening with LDCT in 12 months Dictated by: Rahul Nava MD 11/27/2020 09:29 Rahul Nava MD in [place] 11/27/2020 09:29
--- NOTE | 2020-11-21 07:15 | US_ITS ---
PROCEDURE: US ABD. AORTA SCREENING CLINICAL INDICATION: AAA,H/O NICOTINE DEPENDENCE COMPARISON: No exams were available for comparison FINDINGS: No evidence of abdominal aortic aneurysm. Proximal common iliacs are unremarkable. There is mild amount atheromatous plaque in the aortoiliac vessels. IMPRESSION: No evidence of aortic aneurysm Dictated by: Rahul Nava MD 11/21/2020 15:06 Rahul Nava MD in [place] 11/21/2020 15:06
== END ==
PROVIDERS: PCP Internal Medicine Adolescent Medicine; Visit Provider Internal Medicine Adolescent Medicine
DX: Z87.891 Personal history of nicotine dependence (principal); Z12.2 Encounter for screening for malignant neoplasm of respiratory organs; Z13.6 Encounter for screening for cardiovascular disorders
CPT/HCPCS: 71271; 76705

== ENCOUNTER → 2021-01-17 12:47 | Outpatient (CLI) | payer OTHER, SELFPAY ==
--- NOTE | 2021-01-17 | CA_ITS ---
APPROVED REPORT Speeder Hand: CT Laterality: Bilateral Indications: right bruit Risk Factors Hypertension: Hyperlipidemia CAD, Doppler Spectral Velocity Analysis ECA (R) 78.60/ cm/s ECA (L) 63.60/ cm/s dICA (R) 68.40/28.90 cm/s dICA (L) 68.40/26.20 cm/s Francisco Javier (R) 65.20/28.30 cm/s Francisco Javier (L) 65.20/25.10 cm/s pICA (R) 50.10/18.90 cm/s pICA (L) 58.80/17.10 cm/s dCCA (R) 71.30/20.50 cm/s dCCA (L) 72.20/24.10 cm/s pCCA (R) 109.80/24.40 cm/s pCCA (L) 80.70/22.50 cm/s Vert (R) 38.50/ cm/s Vert (L) 44.40/ cm/s ICA/CCA 1.00 ICA/CCA 1.00 Findings Duplex evaluation demonstrates stenosis of the right proximal internal carotid artery <20% with PSV <140 cm/sec, EDV <100 cm/sec, and IC/CC Ratio <4.0. Duplex evaluation demonstrates stenosis of the left proximal internal carotid artery <20% with PSV <140 cm/sec, EDV <100 cm/sec, and IC/CC Ratio <4.0. Duplex evaluation demonstrates antegrade flow of the bilateral Vertebral Arteries. Plaque noted in Right bulb and near the take off of the R ECA, no obvious stenosis. Conclusion Duplex evaluation demonstrates stenosis of the right proximal internal carotid artery <20% with PSV <140 cm/sec, EDV <100 cm/sec, and IC/CC Ratio <4.0. Duplex evaluation demonstrates stenosis of the left proximal internal carotid artery <20% with PSV <140 cm/sec, EDV <100 cm/sec, and IC/CC Ratio <4.0. Duplex evaluation demonstrates antegrade flow of the bilateral Vertebral Arteries. Plaque noted in Right bulb and near the take off of the R ECA, no obvious stenosis. Electronically signed by : Rahul Nava MD 01/17/2021 18:37:58
== END ==
PROVIDERS: PCP Internal Medicine Adolescent Medicine; Visit Provider Physician Assistant
DX: R09.89 Other specified symptoms and signs involving the circulatory and respiratory systems (principal)
CPT/HCPCS: 93880

== ENCOUNTER → 2022-07-23 14:44 | Outpatient (CLI) | payer OTHER, SELFPAY ==
--- NOTE | 2022-07-23 14:47 | CT_ITS ---
FINAL REPORT CLINICAL HISTORY: lung cancer screening Patient is a former smoker. He quit smoking 6 to 8 years ago. He smoked 2 packs a day for 35 years prior to quitting. He has copd he stated. COMPARISON: 11/21/2020 FINDINGS: Axial images were obtained from the lung apex to the mid abdomen by computed tomography. Low-dose protocol was utilized. CTDl vol(mGy): 2.90 DLP (mGy-cm): 101.60 FINDINGS: There are calcified mediastinal and hilar lymph nodes. The heart size is normal. There is no pericardial or pleural effusion. Limited images of the upper abdomen demonstrate partially imaged stones in the gallbladder. Lung window images demonstrate mild emphysema and mild scarring. There is a 3 mm right upper lobe nodule on image 40 which is stable. Several other less than 5 mm bilateral pulmonary nodules appear stable. A calcified granuloma is seen in the right upper lobe. IMPRESSION: Lung RADS category 2. Recommend 12 month follow-up low-dose chest CT. Reviewed, Interpreted and Dictated by Santhosh Ly III, MD Transcribed by Marya Valencia Authenticated and [facility]
== END ==
PROVIDERS: PCP Internal Medicine Adolescent Medicine; Visit Provider Physician Assistant
DX: Z87.891 Personal history of nicotine dependence (principal); Z12.2 Encounter for screening for malignant neoplasm of respiratory organs; J43.8 Other emphysema
CPT/HCPCS: 71271

== ENCOUNTER 2022-08-04 21:28 | Emergency (ER) | payer OTHER, SELFPAY ==
[2022-08-04 21:29] VITALS: BP 123/80; PULSE 77; RESP 16; TEMP 36.5; O2SAT 97; BMI 26.4
[2022-08-04 22:01] VITALS: BP 106/58; PULSE 71; O2SAT 98
--- NOTE | 2022-08-04 22:26 | CT_ITS ---
PROCEDURE INFORMATION: Exam: CT Abdomen And Pelvis With Contrast Exam date and time: 08/04/2022 11:04 PM Age: 62 years old Clinical indication: Abdominal pain; Other: Epigastric and rlq pain; Additional info: Abd pain TECHNIQUE: Imaging protocol: Computed tomography of the abdomen and pelvis with contrast. Radiation optimization: All CT scans at this facility use at least one of these dose optimization techniques: automated exposure control; mA and/or kV adjustment per patient size (includes targeted exams where dose is matched to clinical indication); or iterative reconstruction. Contrast material: ISOVUE; Contrast volume: 75 ml; Contrast route: IV; REPORTING DATA: Count of CT and Cardiac NM exams in prior 12 months: This patient has received [address] and 0 known cardiac nuclear medicine studies in the 12 months prior to the current study. COMPARISON: ABDPELW CT abdomen pelvis w con 10/27/2018 10:04 AM FINDINGS: Lungs: Benign granulomatous disease of the lung is unchanged. Coronary arteries: Calcific coronary artery disease is evident. Liver: Normal. No mass. Gallbladder and bile ducts: Choledocholithiasis is evident and associated with mild intrahepatic biliary ductal distension. Distended common bile duct measures 12 mm and contains multiple gallstones, as large as 12 mm. Gallbladder distended and contains stones but does not appear acutely inflamed. Pancreas: Normal. No ductal dilation. Spleen: Normal. No splenomegaly. Adrenal glands: Normal. No mass. Kidneys and ureters: Nonobstructive left sided kidney stone measures 4 mm. Nonspecific low-density foci of the left kidney statistically favor benign cysts, no follow-up imaging is recommended, as large as 3 mm. Nonobstructive right sided kidney stone measures 3 mm. Stomach and bowel: Unremarkable. No obstruction. No mucosal thickening. Appendix: Normal appendix. Intraperitoneal space: Unremarkable. No free air. No significant fluid collection. Vasculature: Atherosclerosis is evident. Pelvic arterial stenosis is suspected. Lymph nodes: Unremarkable. No enlarged lymph nodes. Urinary bladder: Unremarkable as visualized. Reproductive: Prostatomegaly. Bones/joints: L1 compression deformity appears likely longstanding/chronic. Anterior endplate osteophyte formation. Mild degenerative changes of both hips. Soft tissues: Unremarkable. Other findings: Incidental pelvic phlebolith formation. IMPRESSION: 1. Choledocholithiasis is evident and associated with mild intrahepatic biliary ductal distension. Distended common bile duct measures 12 mm and contains multiple gallstones, as large as 12 mm. Gallbladder distended and contains stones but does not appear acutely inflamed. ERCP could be considered to further evaluate and potentially treat. 2. Normal appendix. COMMENTS: Consistent with the [employer]'s Incidental Findings Committee white paper (J Am Yung Radiol 2018): Any incidental renal lesion less than 1 cm or classified as too small to characterize, or any incidental cystic renal lesion characterized as simple-appearing, is likely benign. No follow-up imaging is recommended for these lesions per consensus recommendations based on imaging criteria.
[2022-08-04 22:30] VITALS: BP 114/72; PULSE 63; O2SAT 97
--- NOTE | 2022-08-04 22:36 | PC.NURSE ---
Rounded on pt. No needs or complaints voiced.
[2022-08-04 22:41] LABS: Basophils % 0.3 % (0.1-2.0); Eosinophils # 0.2 K/mm3 (0.0-0.4); Eosinophils % 1.4 % (0.1-12.0); Hematocrit 48.3 % (42.0-52.0); Hemoglobin 16.2 g/dL (14.1-18.0); Lymphocytes # 0.9 K/mm3 (0.7-4.5); Lymphocytes % 7.6 % (10-50); Mean Corpuscular HGB Conc 33.5 g/dL (31.8-35.4); Mean Corpuscular Hemoglobin 31.8 pg (27.0-31.2); Mean Corpuscular Volume 94.8 fl (80-94); Mean Platelet Volume 8.1 fl (7.4-10.4); Monocytes # 0.9 K/mm3 (0.1-1.0); Monocytes % 8.1 % (1.7-9.3); Neutrophils # 9.3 K/mm3 (1.8-7.8); Neutrophils % 82.7 % (37.0-80.0); Platelet Count 260 K/mm3 (142-424); Red Blood Count 5.09 M/mm3 (4.60-6.20); White Blood Count 11.2 K/mm3 (4.8-10.8)
[2022-08-04 22:48] LABS: Alanine Aminotransferase 410 U/L (12-78); Albumin Level 4.2 g/dl (3.5-5.0); Albumin/Globulin Ratio 1.3 (1.1-1.8); Alkaline Phosphatase 314 U/L (38-126); Anion Gap 17.9 mEq/L (5-15); Aspartate Amino Transferase 436 U/L (17-59); Bilirubin,Total 3.5 mg/dl (0.2-1.3); Blood Urea Nitrogen 17 mg/dl (9-20); Calcium 9.1 mg/dl (8.4-10.2); Carbon Dioxide 28 mmol/L (22.0-30.0); Chloride 98 mmol/L (98-107); Creatinine Clearance Estimated 95 mL/min (50-200); Estimated Glomerular Filt Rate 136 ml/min (>60); GFR (African American) 165 ML/MIN (>60); Globulin 3.2 g/dL (1.3-3.2); Glucose 110 mg/dl (74-100); Lipase 140 U/L (23-300); Potassium 3.9 mmoL/L (3.5-5.1); Sodium 140 mmol/L (136-145); Total Protein,Serum 7.4 g/dl (6.3-8.2)
[2022-08-04 23:10] VITALS: BP 138/68; PULSE 68; O2SAT 98
[2022-08-04 23:30] VITALS: BP 103/61; PULSE 58; O2SAT 98
--- NOTE | 2022-08-04 23:39 | HMH.EDABDPAI ---
Discharge Plan Disposition Patient Disposition: Xfer Short-Term Hosp Condition: Fair Prescriptions Prescriptions: No Action esomeprazole magnesium [Nexium] 20 mg capsule,delayed release(DR/EC) 20 mg PO BID Vraylar 1.5 mg capsule 1.5 mg PO DAILY magnesium 200 mg tablet 200 mg PO DAILY ascorbate calcium (vitamin C) 500 mg tablet 500 mg PO DAILY famotidine [Pepcid] 40 mg tablet 40 mg PO BID docusate sodium [Stool Softener] 100 mg capsule 100 mg PO BID ropinirole 1 mg tablet 3 mg PO DAILY PRN (Reason: restless leg(s)) Qty: 90 1RF Rx Instructions: take 1-3 tablets PO PRN QHS clopidogrel 75 mg tablet See Rx Instructions .ROUTE .COMPLEX Qty: 90 2RF Dose Instruction: TAKE 1 TABLET BY MOUTH ONCE DAILY Rx Instructions: TAKE 1 TABLET BY MOUTH ONCE DAILY bisoprolol fumarate 5 mg tablet See Rx Instructions .ROUTE .COMPLEX Qty: 30 6RF Dose Instruction: TAKE 1/2 TABLET BY MOUTH DAILY FOR HIGH BLOOD PRESSURE Rx Instructions: TAKE 1/2 TABLET BY MOUTH DAILY FOR HIGH BLOOD PRESSURE lisinopril 5 mg tablet See Rx Instructions .ROUTE .COMPLEX Qty: 90 2RF Dose Instruction: TAKE 1 TABLET BY MOUTH ONCE DAILY Rx Instructions: TAKE 1 TABLET BY MOUTH ONCE DAILY atorvastatin 80 MG tablet 80 mg PO HS tamsulosin 0.4 MG capsule 0.4 mg PO DAILY Label Comments: Referrals Follow up/Referrals: Kareem Duenas MD [Primary Care Provider] - See instructions Clinical Impressions Clinical Impression: Choledocholithiasis Stand Alone Forms Stand Alone Forms: Transfer Record - ED Instructions Patient Instructions: DI for Acute Abdominal Pain Discharge ED Provider: Osbaldo Luna Abdominal Pain HPI General Chief Complaint: Abdominal Pain Stated Complaint: Abd pain back pain Time Seen by Provider: 08/04/22 22:00 Mode of Arrival: Ambulatory Source of Information: Patient Limitations: No Limitations Description of Symptoms (Recalled from ER Triage Doc. by RN): Pt arrives to ED with c/o abd pain associated with vomiting for approx 1 month intermittently. Pt also c/o low back pain and burning w urination. Denies diarrhea. History of Present Illness complaint: abdominal pain Location: RUQ and epigastric Severity: moderate Radiation: RUQ and epigastric Exacerbating factors: eating Associated symptoms: nausea Related Data Home Medications Medication Instructions Recorded Confirmed atorvastatin 80 mg tablet 80 mg PO HS Cholesterol 07/19/17 07/11/22 tamsulosin 0.4 mg capsule 0.4 mg PO DAILY prostate 07/19/17 07/11/22 esomeprazole magnesium 20 mg 20 mg PO BID 10/14/18 07/11/22 capsule,delayed release (Nexium) cariprazine 1.5 mg capsule 1.5 mg PO DAILY 01/25/19 07/11/22 (Vraylar) ascorbate calcium (vitamin C) 500 500 mg PO DAILY 09/21/19 07/11/22 mg tablet famotidine 40 mg tablet (Pepcid) 40 mg PO BID 09/21/19 07/11/22 magnesium 200 mg tablet 200 mg PO DAILY 09/21/19 07/11/22 docusate sodium 100 mg capsule 100 mg PO BID 07/11/22 07/11/22 (Stool Softener) Previous Rx's Medication Instructions Recorded ropinirole 1 mg tablet 3 mg PO DAILY PRN restless leg(s) 06/30/19 #90 tabs clopidogrel 75 mg tablet See Rx Instructions .Route 09/06/21 .COMPLEX #90 tabs bisoprolol fumarate 5 mg tablet See Rx Instructions .Route 01/23/22 .COMPLEX #30 tabs lisinopril 5 mg tablet See Rx Instructions .Route 03/18/22 .COMPLEX #90 tabs Allergies Allergy/AdvReac Type Severity Reaction Status Date / Time No Known Allergies Allergy Verified 07/11/22 10:47 [facility] Disclaimer: The information contained in this section may have been updated after the patient was seen, as this information can be updated by other users. Medical History Bradycardia Fatigue Moderate tricuspid regurgitation Palpitations Pulmonary hypertension Severe pulmonary disease
[2022-08-05] VITALS: BP 118/74; PULSE 56; O2SAT 97
--- NOTE | 2022-08-05 00:09 | PC.NURSE ---
speaking with Montana Rosas MD at [facility] regarding possible patient transfer.
[2022-08-05 00:30] VITALS: BP 107/66; PULSE 54; O2SAT 97
[2022-08-05 01:05] VITALS: BP 110/70; PULSE 56; RESP 18; TEMP 36.6; O2SAT 99
== END 2022-08-05 01:08 | disposition short-term general hospital (02) ==
PROVIDERS: Emergency Provider Emergency Medicine; PCP Internal Medicine Adolescent Medicine
DX: K80.50 Calculus of bile duct without cholangitis or cholecystitis without obstruction (principal)
CPT/HCPCS: 74177; 80053; 83690; 85025; 96361; 96374; 96375; 99285; J2405; Q9967

== ENCOUNTER → 2022-11-05 14:44 | Outpatient (CLI) | payer OTHER, SELFPAY ==
--- NOTE | 2022-11-05 14:53 | CT_ITS ---
FINAL REPORT TECHNIQUE: Axial images were obtained from the lung apex to the mid abdomen by computed tomography. This study was performed with techniques to keep radiation doses as low as reasonably achievable (ALARA). Individualized dose reduction techniques using automated exposure control or adjustment of mA and/or kV according to the patient's size were employed. CLINICAL HISTORY: H/O TOBACCO USE, former smoker, quite 8 years ago. smoked 2 ppd x 35 years copd, cad, chf COMPARISON: 07/23/2022 FINDINGS: CHEST CT LOW DOSE CTDI vol (mGy): 2.90 DLP (mGy-cm): 107.07 There is no axillary adenopathy. There is no hilar or mediastinal adenopathy. The heart is normal in size. There is no pericardial or pleural effusion. There is a 3 mm right upper lobe nodule well seen on image 43, stable. There is a calcified granuloma in the right upper lobe. There is mild bibasilar scarring. No new mass or nodule is identified. Limited images of the upper abdomen are unremarkable. IMPRESSION: Stable right upper lobe nodule. Lung RADS category 2. Recommend 12 month follow-up low-dose chest CT. Reviewed, Interpreted and Dictated by Santhosh Ly III, MD Transcribed by Margarita Rincon Authenticated and . [facility]
== END ==
LOC: RAD 14:45
PROVIDERS: PCP Internal Medicine Adolescent Medicine; Visit Provider Internal Medicine Adolescent Medicine
DX: Z87.891 Personal history of nicotine dependence (principal); Z12.2 Encounter for screening for malignant neoplasm of respiratory organs
CPT/HCPCS: 71271

== ENCOUNTER → 2023-01-27 12:00 | Outpatient (CLI) | payer OTHER, SELFPAY ==
--- NOTE | 2023-01-27 12:06 | CT_ITS ---
APPROVED REPORT Reconciliation Accountant: CLINICAL INDICATION Chest Pain TECHNIQUE Image Acquisition: A 128 slice MDCT scanner ([employer] Chargebacka View) was used for data acquisition. A noncontrast coronary calcium scan was performed. A CT attenuation threshold of 130 Hounsfield units (HU) was used for the detection of calcium in contiguous voxels of 1 sq mm in area to be counted as individual lesions. Bolus tracking in the ascending aorta with a threshold of 180 HU was performed. Immediately afterwards, ECG synchronized cardiac CT was then performed from the cardiac base to apex using retrospective gating with ECG tube current modulation. A total of 85 mL of Isovue 370 mg/mL contrast medium was administered at 5 mL/sec followed by a saline flush using a biphasic injection protocol. A tube voltage of 120 KVp was used. The patient received the following medications prior to the cardiac CT. 0.8 mg of sublingual nitroglycerin The average heart rate at the time of acquisition was 51 bpm and regular. Image Reconstruction Transaxial images were reconstructed at 0.67 mm slide thickness. Data was reviewed interactively on an advanced workstation capable of 2 and 3-dimensional displays in all conventional reconstruction formats, including multiplanar reformations, maximum intensity projections, curved multiplanar reformations, and volume rendered reconstructions. When applicable, selected routine images describing the relevant coronary anatomy and pathology were saved and sent to PACS. Complications None Technical Quality Overall image quality was good. Coronary artery opacification was adequate. Total DLP (Dose-Length Product) is 1537.0 mGy-cm. The reported value represents the total of one or more individual components during the CT acquisition of this date and at this time, and as such, the same value may appear in more than one CT report depending on the interpreting/reporting physicians. COMPARISON None FINDINGS Coronary CT Angiography Coronaries have normal origin and proximal course. The coronary arterial system is right dominant. Note: Stenosis is reported as maximum percentage diameter stenosis. Quantitative Stenosis Grading: Left Main (LM): The left main originates normally from the left sinus of Valsalva. The LM bifurcates into the left anterior descending artery and left circumflex artery. There is calcification in the LM, but no evidence of luminal narrowing. Left Anterior Descending (LAD) and Diagonal Branches: The LAD gives off 2 diagonal branches. There is a mid-LAD stent, as well as a bifurcating LAD/1st diagonal stent present. There is calcification proximal to the mid-LAD stent, but without any evidence of luminal narrowing. The stented segments appear patent with no evidence of significant occlusion, but mild stenosis cannot be completely ruled out. The remaining segments of the LAD and its branches are patent with no evidence of atherosclerosis. There is no evidence of LAD bridge. Left Circumflex (LCX) and Obtuse Marginals (OM): The LCX gives off 2 Obtuse Marginal (OM) branches. There is calcification in the proximal LCX but without any luminal narrowing. The LCX and its branches are patent with no evidence of atherosclerosis. Right Coronary Artery (RCA): The RCA originates normally from the right sinus of Valsalva. The RCA gives off a posterior descending artery (PDA) and posterolateral (PL) branches. There is a proximal RCA stent present. The stented segments appear patent with no evidence of significant occlusion, but mild stenosis cannot be completely ruled out. There is calcification in the distal RCA with approximately 30-50% luminal stenosis. The remaining segments of the RCA and its branches are patent with no evidence of atherosclero
[2023-01-27 12:14] VITALS: BMI 26.4
[2023-01-27 12:19] VITALS: BP 134/86; PULSE 60; RESP 18; TEMP 36.2; O2SAT 99
[2023-01-27 12:33] LABS: Sodium 139 mmol/L (136-145)
[2023-01-27 12:36] LABS: Blood Urea Nitrogen 12 mg/dl (9-20); Carbon Dioxide 30 mmol/L (22.0-30.0); Creatinine Clearance Estimated 95 mL/min (50-200); Estimated Glomerular Filt Rate 114 ml/min (>60); GFR (African American) 138 ML/MIN (>60); Glucose 98 mg/dl (74-100)
[2023-01-27 12:50] VITALS: BP 142/86; PULSE 56; RESP 18; O2SAT 97
[2023-01-27 12:55] VITALS: BP 149/83; PULSE 52; RESP 18; O2SAT 99
[2023-01-27 13:05] VITALS: BP 118/75; PULSE 60; RESP 18; O2SAT 99
[2023-01-27 13:46] LABS: Chloride 103 mmol/L (98-107)
== END | disposition home or self-care (01) ==
PROVIDERS: PCP Internal Medicine Adolescent Medicine; Visit Provider Physician Assistant
DX: R06.02 Shortness of breath (principal); I25.10 Atherosclerotic heart disease of native coronary artery without angina pectoris
CPT/HCPCS: 75574; 80048; Q9967

== ENCOUNTER 2024-09-21 07:21 | Day surgery (SDC) | payer MEDICARE, SELFPAY ==
[2024-09-20 13:24] VITALS: BMI 29.9
[2024-09-21 07:40] VITALS: BP 121/76; PULSE 62; RESP 18; TEMP 36.3; O2SAT 95
--- NOTE | 2024-09-21 07:59 | P.PNANES_ITS ---
[facility] Disclaimer: The information contained in this section may have been updated after the patient was seen, as this information can be updated by other users. Medical History Fatigue Palpitations Bradycardia Moderate tricuspid regurgitation Severe pulmonary disease Pulmonary hypertension Surgical History History of coronary artery stent placement History of cholecystectomy Family History Other Family history of heart disease Social History Smoking Status: Never smoker second hand exposure: No alcohol intake: former substance use type: denies use current occupational status: employed Travel in the last 8 weeks?: None household members: spouse and children housing: house current occupation: [employer] current occupational exposures/hazards: No caffeine: Yes Have you lived/traveled outside [place] in past 30 days?: No Contact w/someone who lives/traveled outside [place] past 30 days?: No Exposure to someone with infectious disease in past 14 days?: No Do you have a fever (greater than 100.4 F or 38 C)?: No Have you tested positive for COVID-19?: No Exposed to someone with COVID-19 in past 14 days?: No Do you have a sore throat?: No Do you have a cough?: No Do you have any weakness?: No Are you experiencing any nausea/vomitting?: No Do you have any diarrhea?: No Are you experiencing any unusual bleeding?: No Do you have any muscle aches/pain?: No Do you have any abdominal pain?: No Are you experiencing loss of taste or smell?: No [facility] Anesthesia Checklist Patient Identification Patient Identification: Arm Band and Verbal (Name & ) Structural Data Admitted From: Home Planned Operative Procedure/s: Colonoscopy Consent for Planned Operative Procedure(s) Verified: Yes Verified Documents: Surgical Consent NPO Status Verified Time NPO: 00:00 Additional verifications Anesthesia Reactions: No Hx Blood Transfusions: No Blood Transfusion Reaction: No Airway Assessment Mallampati Score:: Class II C-Spine Mobility Assessed: Yes TMJ Mobility Assessed: Yes Dentition: Dentures-good fit Neurological Assessment Level of Consciousness: Awake, Alert and Appropriate Hx Seizures: No Numbness or tingling in extremities: No Anesthesia Plan Anesthesia Risk discussed: Yes Anesthesia Plan: Verified ASA Class: II Anesthesia Type: MAC
--- NOTE | 2024-09-21 08:00 | EXP.GEN.HP ---
HPI HPI HPI: The patient presents for colonoscopy. Colonoscopy September 2018 was somewhat complicated by moderate bowel preparation and fairly severe spasticity/lack of relaxation. Hemorrhoidal cushions noted. A boggy prostate was also noted. Scattered diverticulosis noted. A large complex 9 mm sessile transverse colon polyp was excised and found to be a sessile serrated adenoma. A repeat colonoscopy in 6-12 months was recommended. [facility] Disclaimer: The information contained in this section may have been updated after the patient was seen, as this information can be updated by other users. Medical History Fatigue Palpitations Bradycardia Moderate tricuspid regurgitation Severe pulmonary disease Pulmonary hypertension Surgical History History of coronary artery stent placement History of cholecystectomy Family History Other Family history of heart disease Social History Smoking Status: Never smoker second hand exposure: No alcohol intake: former substance use type: denies use current occupational status: employed Travel in the last 8 weeks?: None household members: spouse and children housing: house current occupation: [employer] current occupational exposures/hazards: No caffeine: Yes Have you lived/traveled outside [place] in past 30 days?: No Contact w/someone who lives/traveled outside [place] past 30 days?: No Exposure to someone with infectious disease in past 14 days?: No Do you have a fever (greater than 100.4 F or 38 C)?: No Have you tested positive for COVID-19?: No Exposed to someone with COVID-19 in past 14 days?: No Do you have a sore throat?: No Do you have a cough?: No Do you have any weakness?: No Are you experiencing any nausea/vomitting?: No Do you have any diarrhea?: No Are you experiencing any unusual bleeding?: No Do you have any muscle aches/pain?: No Do you have any abdominal pain?: No Are you experiencing loss of taste or smell?: No Other Medical History Have you received the Flu Vaccine for this season: Yes Have you received the Pneumonia Vaccine: No Review of Systems Review of Systems Review of systems:: pertinent systems reviewed and negative unless documented below Meds Home Medications and Allergies Home Medications ?Medication ?Instructions ?Recorded ?Confirmed ?Type atorvastatin 80 mg tablet 80 mg PO HS Cholesterol 07/19/17 09/21/24 History tamsulosin 0.4 mg capsule 0.4 mg PO DAILY prostate 07/19/17 09/21/24 History esomeprazole magnesium 20 mg 20 mg PO BID 10/14/18 09/21/24 History capsule,delayed release (Nexium) cariprazine 1.5 mg capsule 1.5 mg PO DAILY 01/25/19 09/21/24 History (Vraylar) ropinirole 1 mg tablet 3 mg (3 x 1 mg) PO DAILY PRN 06/30/19 09/21/24 Rx restless leg(s) #90 tabs ascorbate calcium (vitamin C) 500 500 mg PO DAILY 09/21/19 09/21/24 History mg tablet magnesium 200 mg tablet 200 mg PO DAILY 09/21/19 09/21/24 History clopidogrel 75 mg tablet See Rx Instructions .Route 07/20/24 09/21/24 Rx .COMPLEX #90 tabs evolocumab 140 mg/mL subcutaneous 140 mg SQ Q2W #2 mL 07/20/24 09/21/24 Rx pen injector (Repatha SureClick) polyethylene glycol 3350 17 17 g PO DAILY 07/27/24 09/21/24 History gram/dose oral powder (Miralax) New Prescriptions to Start Prescriptions: Allergies Allergy/AdvReac Type Severity Reaction Status Date / Time No Known Allergies Allergy Verified 07/27/24 13:16 Exam Data for Last 24 hours Vital signs and Labs for Last 24 Hours: Temp Pulse Resp BP Pulse Ox O2 Del Method 97.3 F L 62 18 121/76 95 Room Air 09/21/24 07:40 09/21/24 07:40 09/21/24 07:40 09/21/24 07:40 09/21/24 07:40 09/21/24 07:40 I & O for Last 24 hours: Intake & Output 09/18/24 09/19/24 09/20/24 09/21/24 11:59 11:59 11:59 11:59 Weight 215 lb Constitutional Constitutional: no acute distress *Routine HEENT Exam Head: Present normocephalic Eye: Present EOMI ENT: Present mucous membranes moist *Routine Neck Exam Neck: Present full ROM *Routine Respiratory Exam Respiratory: Absent respiratory distress *Routine Cardiovascular Exam Cardiovascular: Absent tachycardia *Routine Abdominal Exam Abdominal: Present soft *Routine Rectal Exam Rectal:: deferred *Routine Genitalia Exam Genitalia:: deferred *Routine Extremities Exam Extremities: Present full ROM *Routine Skin Exam Skin: Absent erythema *Routine Neurological Exam Neurological: Present alert Assessment and Plan *Assessment and plan (1) History of colon polyps: Status: Acute Category: Medical Code(s): Z86.0100 - Personal history of colon polyps, unspecified Plan: Colonoscopy today I have discussed the risks and benefits including, but not limited to: Bleeding Infection Damage to surrounding tissue Inherent risks of sedation The patient agrees to proceed.
--- NOTE | 2024-09-21 08:02 | HMH.SCOPE ---
Procedure: Date: 09/21/24 Patient Date of :: 1960 Procedure Performed:: Colonoscopy with polypectomy Indications:: History of colon polyps Note: Colonoscopy in September 2018 was somewhat complicated by moderate bowel preparation and fairly severe spasticity/lack of relaxation. Hemorrhoidal cushions noted. A boggy prostate and scattered diverticulosis was also noted. A large complex 9 mm sessile transverse colon polyp was excised and found to be a sessile serrated adenoma. A repeat colonoscopy in 6-12 months was recommended. Performing Provider:: Deepak Herrera MD Referring Provider:: . Sedation:: Monitored anesthesia care Procedure:: After informed consent was obtained the patient was taken to the endoscopy suite. Sedation ensued after the patient was transferred to the left lateral decubitus position. Pulse, blood pressure, and oxygen saturation were monitored throughout the procedure. Digital rectal exam revealed no significant abnormality. The colonoscope was placed in position. The entire colon was evaluated. The colonoscope was carefully removed and the patient was transferred to recovery in stable condition. Please see findings and specimens below for detail. Findings:: Bowel preparation moderate Fairly severe spasticity/lack of relaxation Polyps (see specimens) Specimens:: Transverse colon polyp (cold snare) Adjacent polyps at 60 cm (cold snare) Polyp at 20 cm (cold snare) Recommendations:: Timing of repeat colonoscopy is pending pathology will likely be between 1-2 years secondary to size/nature/number of polyps historically, moderate bowel preparation, and spasticity/lack of relaxation. Complications:: No immediate Estimated blood obtained (mL): 1 Colonoscopy Component Colonoscopy Component Was a colonoscopy performed during today's procedure?: Yes Recommended follow up colonoscopy of at least 10 years?: No If no, follow up colonoscopy recommended in ___ years?: (See above) Reason for not recommending >/= 10 yr follow-up interval?: (See above)
[2024-09-21 08:46] VITALS: BP 83/45; PULSE 69; RESP 15; TEMP 36.2; O2SAT 96
[2024-09-21 09:07] VITALS: BP 102/82; PULSE 56; RESP 16; O2SAT 100
[2024-09-21 09:16] VITALS: BP 152/92; PULSE 56; RESP 16; O2SAT 100
== END 2024-09-21 09:20 | disposition home or self-care (01) ==
PROVIDERS: PCP Internal Medicine Adolescent Medicine; Visit Provider Surgery
PROC: 0DJD8ZZ Inspection of Lower Intestinal Tract, Via Natural or Artificial Opening Endoscopic (ICD-10-PCS; CPT 45385; principal; 2024-09-21 08:30)
DX: D12.6 Benign neoplasm of colon, unspecified (principal); I27.20 Pulmonary hypertension, unspecified; Z86.0101 Personal history of adenomatous and serrated colon polyps; Z79.899 Other long term (current) drug therapy
CPT/HCPCS: 45385; J2003; J2704